=== PATIENT | female | born 1945 | race Caucasian/White ===

== ENCOUNTER 2018-11-12 17:17 | Inpatient (IN) ==
[2018-11-12] MEDS ORDERED: NS 1000 ML 1,000 ML ONE ×3 (17:19→20:09)
--- NOTE | 2018-11-12 17:37 | DR.EXTPAIN ---
HPI Time seen Time Seen by Provider: 11/12/18 17:33 PCP Primary Care Physician: ELOISA HPI Comment HPI Comment: PATIENT IS 73YR OLD FEMALE HERE VIA EMS WITH LOW BLOOD AND INFECTION LEFT LOWER EXTREMITY. PATIENT HAVE GENERALIZE WEAKNESS AND PAIN FOR FEW DAYS. EMS SAID PATIENT WAS HYPOTENSIVE BUT RESPONDED TO NORMAL SALINE GIVEN. IN ED, SHE IS ALERT AND ANSWERING QUESTIONS. BP IS 92/40. PAIN LEVEL IS 4/10 CURRENTLY MAINLY LEFT LOWER EXTREMITY BUT ALSO MYALGIA. NO FEVER BUT HAVE FELT WARM AND HAD CHILLS AT HOME. SORE IN LEFT FOOT IS WORSE WITH SWELLING AND REDNESS GOING INTO LEGS. Complaint/Symptoms Chief Complaint Doctor Comments: LOW LOW BLOOD PRESSURE AND INFECTION LEFT LOWER EXTREMITY. Chief Complaint:: PT C/O LT LOWER EXT WOUND. [facility] STATES THEY WERE CA LLED OUT BY HOME [facility]ALTH [facility] FOR THE INFECTED FOOT. EMS STATES THEY WERE UNABLE TO OBTAIN B/P UNTIL FLUIDS WERE ADMINISTERED. Nurses notes reviewed Nurses Notes Review: Yes Source History Provided: Patient Mode of arrival Mode of Arrival: EMS Timing Onset of Chief Complaint: 11/12/18 Context History of: Arthritis Associated signs and symptoms Associated Signs and Symptoms: Weakness, Pain and Swelling PMH PMH Past Medical History: Yes Past Medical History: Arthritis and Hypertension Past Surgical History: Yes Surgical History: Bowel Resection, Hysterectomy and Ortho Surgery Past Surgical History Comment: RT HAND SURGERY, Family History History of Family Medical Conditions: No Social History Does patient currently use any type of tobacco product: Yes Have you used tobacco products in the last 12 months: Yes Type of Tobacco Use: Cigarettes Does any household member use tobacco: Yes Alcohol Use: None Do you use any recreational Drugs:: No Lives With: Family Lives Where: Home infectious screening In the last 2 months have you had wt loss of >10#?: NO Have you had fever, night sweats or hemotysis?: No Have you traveled outside the country in the last 6 months?: No Isolation: Standard ROS Review of Systems Constitutional: See HPI, Chills, Fever, Weakness and Fatigue; negative Diaphoresis and Loss of Appetite Eyes: See HPI; negative Eye Pain, Blurred Vision, Tearing and Discharge ENTM: No Symptoms Reported and See HPI; negative Ear Pain, Nose Discharge, Nose Congestion and Throat Pain Respiratoy: See HPI and Non-Productive Cough; negative Short of Breath and Wheezing Cardiovascular: See HPI and Edema (LENT LEG.); negative Chest Pain and Palpitations Gastrointestinal/Abdominal: See HPI and Nausea; negative Abdominal Pain, Constipation, Diarrhea and Vomiting Genitourinary: No Symptoms Reported and See HPI; negative Dysuria, Frequency and Hematuria Neurological: See HPI, Headache, Weakness and Dizziness Musculoskeletal: See HPI, Back Pain and Muscle Pain Integumentary: See HPI, Change in Color and Wound (LEFT FOOT DRAINING WOUND TOES.) Hematologic/Lymphatic: See HPI, Easy Bruising, Swollen Glands and Lymphadenopathy Endocrine: See HPI and Increased Thirst; negative Increased Urine and Decreased Appetite Psychiatric: No Symptoms Reported and See HPI All Other Systems: Reviewed and Negative PE Vital Signs Vitals: Temperature 99.5 F Pulse Rate [Left Brachial] 126 Pulse Rate 89 Respiratory Rate 20 Blood Pressure [Right Arm] 150/85 Blood Pressure [Left Arm] 111/54 Blood Pressure 82/52 O2 Sat by Pulse Oximetry 100 General Limitations: No Limitations General Appearance: Alert and In No Apparent Distress Head Head Exam: Normal Inspection and Atraumatic Eyes Eye exam: Normal Appearance and PERRL; negative Scleral Icterus and Conjunctival Injection ENT ENT Exam: Normal Exam, Normal Oropharynx, Normal External Ear Exam and TM's Normal Bilaterally Neck Neck Exam: Normal Inspection and Trachea Midline; negative Tenderness and Lymphadenopathy Chest Chest Inspection: Normal Inspection and Symmetric Chest Wall Rise; negative Tenderness Respiratory Respiratory Exam: negative Accessory Muscle Use, Chest Wall Tenderness and Respiratory Distress Respiratory Exam: Bilateral: Rhonchi and Lower: Rhonchi Cardiovascular Cardiovascular Exam: Regular Rate, Normal Rhythm and Normal Heart Sounds; negative Systolic Murmur and Diastolic Murmur Abdominal Exam Abdominal Exam: Normal Inspection, Normal Bowel Sounds and Soft; negative Tenderness Abdominal Tenderness: RUQ Extremities Extremities Exam: Full ROM and Tenderness (TENDERNESS LEFT FOOT AND LEG WITH DRAINAGE FROM ) Neurological Neurological Exam: Alert, Oriented X3 and CN II-XII Intact; negative Motor Sensory Deficit Psychiatric Psychiatric Exam: Normal Affect and Anxious Skin Skin Exam: Erythema Type of Lesion: Rash (INFECTION.) Distribution: RLE Description: Tenderness, Erythematous, Swelling and Discharge (DRAINAGE.) MDM Differential Diagnosis Differential Diagnosis: Other (CELLULITIS LLE, HYPOTENSION) COURSE Treatment Treatment: SEE ORDERS. NS 1L BOLUS X 2 AND VANCOMYCIN, 500MG IVPB IN ED. Reevaluation 1st: Improved (BLOOD PRESSURE IMPROVING.) 2nd: Improved (BLOOD PRESSURE CONTINUE TO IMPROVE. SEE NURSING NOTE.) Consultation Consultation Comments: DISCUSS PATIENT WITH DR. AMIN. HE WILL ADMIT PATIENT. ADMIT ORDERS DONE. Education/Counseling Education/Counseling: Patient Educated On: Diagnosis and Needs for Follow Up ROR Labs Reviewed Laboratory Results Reviewed?: Yes Result Diagrams: 11/20/18 04:28 11/20/18 04:28 Laboratory: 11/12/18 18:20 Blood Blood Culture - Final 11/12/18 17:48 Blood Blood Culture - Final 11/12/18 17:30 Foot - Left Gram Stain - Final 11/12/18 17:30 Foot - Left Wound Culture - Final Staphylococcus Aureus WBC 14.3 X10^3/uL (3.6-10.0) H 11/20/18 04:28 RBC 3.67 X10^6/uL (3.5-5.4) 11/20/18 04:28 Hgb 10.8 g/dL (12.0-16.0) L 11/20/18 04:28 Hct 31.5 % (36.0-47.0) L 11/20/18 04:28 MCV 85.8 fL (80.0-100.0) 11/20/18 04:28 MCH 29.6 pg (27.0-34.0) 11/20/18 04:28 MCHC 34.5 g/dL (33.0-35.0) 11/20/18 04:28 RDW 15.5 % (11.6-16.5) 11/20/18 04:28 Plt Count 89 X10^3/uL (150.0-450.0) L 11/20/18 04:28 Plt Count Comment Decreased (ADEQUATE) A 11/20/18 04:28 MPV 9.0 fL (7.4-11.0) 11/20/18 04:28 Neut % (Auto) 81.2 % (42.0-75.0) H 11/20/18 04:28 Lymph % (Auto) 11.0 % (21.0-51.0) L 11/20/18 04:28 Rowan % (Auto) 6.6 % (0.0-13.0) 11/20/18 04:28 Eos % (Auto) 1.1 % (0.9-2.9) 11/20/18 04:28 Baso % (Auto) 0.1 % (0.2-1.0) L 11/20/18 04:28 Neut # (Auto) 11.6 x10^3/uL (2.2-4.8) H 11/20/18 04:28 Lymph # (Auto) 1.6 X10^3/uL (1.3-2.9) 11/20/18 04:28 Rowan # (Auto) 0.9 x10^3/uL (0.3-0.8) H 11/20/18 04:28 Eos # (Auto) 0.2 x10^3/uL (0.0-0.2) 11/20/18 04:28 Baso # (Auto) 0.0 X10^3/uL (0.0-0.1) 11/20/18 04:28 Absolute Nucleated RBC 0.1 /100WBC 11/20/18 04:28 Total Counted 100 11/20/18 04:28 Neutrophils % (Manual) 74 % (39-76) 11/20/18 04:28 Band Neutrophils % 4 % (0-10) 11/20/18 04:28 Lymphocytes % (Manual) 15 % (13-43) 11/20/18 04:28 Monocytes % (Manual) 5 % (4-9) 11/20/18 04:28 Eosinophils % (Manual) 2 % (0-6) 11/20/18 04:28 Plt Morphology Comment Normal (NORMAL) 11/20/18 04:28 RBC Morphology Normal (NORMAL) 11/20/18 04:28 ESR 48 MM/HOUR (0-20) H 11/18/18 04:27 INR Target Range - 11/14/18 05:24 INR 1.08 (0.8-1.3) 11/14/18 05:24 Sample Site Rbra 11/18/18 22:15 ABG pH 7.550 (7.35-7.45) H 11/18/18 22:15 ABG pCO2 47.0 mmHg (35.0-45.0) H 11/18/18 22:15 ABG pO2 144.0 mmHg (80.0-100.0) H 11/18/18 22:15 ABG HCO3 41.1 mmol/L (22-26) H* 11/18/18 22:15 ABG O2 Saturation 99.0 % (90-100) 11/18/18 22:15 ABG Base Excess 16.6 mmol/L (-2.0-2.0) H 11/18/18 22:15 Lan Test N/a 11/18/18 22:15 A-a Gradient 82.0 mmHg 11/18/18 22:15 FiO2 40.0 11/18/18 22:15 Blood Gas Comments Pt toll well eb 11/18/18 22:15 Sodium 142 mmol/L (136-145) 11/20/18 04:28 Corrected Sodium TNP 11/20/18 04:28 Potassium 2.8 mmol/L (3.5-5.1) L* 11/20/18 04:28 Chloride 98 mmol/L (98-107) 11/20/18 04:28 Carbon Dioxide 35.3 mmol/L (21-32) H 11/20/18 04:28 BUN 46 mg/dL (7-18) H 11/20/18 04:28 Creatinine 3.06 mg/dL (0.55-1.02) H 11/20/18 04:28 Est GFR (MDRD) Af Amer 19 (>60) L 11/20/18 04:28 Est GFR (MDRD) Non-Af 16 (>60) L 11/20/18 04:28 Glucose 97 mg/dL (65-99) 11/20/18 04:28 POC Glucose (mg/dL) 56 mg/dL (65-99) L 11/17/18 21:19 Lactic Acid 1.0 mmol/L (0.4-2.0) 11/12/18 17:48 Calcium 9.1 mg/dL (8.5-10.1) 11/20/18 04:28 Corrected Calcium TNP 11/20/18 04:28 Magnesium 3.0 mg/dL (1.7-2.9) H 11/20/18 04:28 Total Bilirubin 1.10 mg/dL (0.2-1.0) H 11/20/18 04:28 AST 36 Units/L (15-37) 11/20/18 04:28 ALT 29 Units/L (12-78) 11/20/18 04:28 Alkaline Phosphatase 40 Units/L (46-116) L 11/20/18 04:28 Creatine Kinase 602 Units/L (26-192) H 11/17/18 10:22 CK-MB (CK-2) 3.4 ng/mL (0-4.0) 11/17/18 10:22 CK/CKMB % Calc 0.6 % (<4) 11/17/18 10:22 Troponin I 0.49 ng/mL (0-1.5) 11/17/18 10:22 C-Reactive Protein 196.30 mg/L (0-3.0) H 11/18/18 04:27 B-Natriuretic Peptide 1050 pg/mL (0-79) H* 11/20/18 04:28 Total Protein 7.0 g/dL (6.4-8.2) 11/20/18 04:28 Albumin 3.8 g/dL (3.4-5.0) 11/20/18 04:28 Globulin 3.2 g/dL (2.5-4.5) 11/20/18 04:28 Albumin/Globulin Ratio 1.2 Ratio (1.1-2.1) 11/20/18 04:28 Specimen Type Catherized urine 11/12/18 20:45 Urine Color Yellow (YELLOW) 11/12/18 20:45 Urine Appearance Hazy (CLEAR) 11/12/18 20:45 Urine pH 5.0 (5.0 - 8.0) 11/12/18 20:45 Ur Specific Margie 1.020 (1.000-1.030) 11/12/18 20:45 Urine Protein 2+ (NEGATIVE) 11/12/18 20:45 Urine Glucose (UA) Negative (NEGATIVE) 11/12/18 20:45 Urine Ketones Negative (NEGATIVE) 11/12/18 20:45 Urine Occult Blood 4+ (NEGATIVE) 11/12/18 20:45 Urine Nitrite Negative (NEGATIVE) 11/12/18 20:45 Urine Bilirubin 2+ (NEGATIVE) 11/12/18 20:45 Urine Urobilinogen Normal (NORMAL) 11/12/18 20:45 Ur Leukocyte Esterase 1+ (NEGATIVE) 11/12/18 20:45 Urine RBC 0-2 /HPF (NONE SEEN) 11/12/18 20:45 Urine WBC 0-2 /HPF (NONE SEEN) 11/12/18 20:45 Ur Squamous Epith Cells Rare /HPF (NEGATIVE) 11/12/18 20:45 Amorphous Sediment 3+ /HPF (NEGATIVE) 11/12/18 20:45 Urine Bacteria Negative /HPF (NEGATIVE) 11/12/18 20:45 Hyaline Casts Rare /LPF (NEGATIVE) 11/12/18 20:45 Fine Granular Casts Rare /LPF (NEGATIVE) 11/12/18 20:45 Ur Culture Indicated? No/not indicated 11/12/18 20:45 Vancomycin Trough 26.8 ug/mL (15-20) H* 11/19/18 20:56 Random Vancomycin 25.7 ug/mL 11/20/18 04:28 Tissue Pathology To follow 11/14/18 10:36 XRAY XRAY Interpreted by: Radiologist XRAY Findings: REPORT NOTED AND DISCUSS WITH PATIENT. Opioid Opioid Risk Tool Age (Jeff box if 16-45): No Total: 0 Total Score Risk Category: Low Risk Copyright: [facility] predicting aberrant behaviors Diagnosis Discharge Problem: Acute hypotension, Cellulitis of foot, left Acute renal failure Qualifiers: Acute renal failure type: with acute renal cortical necrosis Qualified Code(s): N17.1 - Acute kidney failure with acute cortical necrosis Noninfected skin tear of right leg Qualifiers: Encounter type: initial encounter Qualified Code(s): S81.811A - Laceration without foreign body, right lower leg, initial encounter Noninfected skin tear of left leg Qualifiers: Encounter type: initial encounter Qualified Code(s): S81.812A - Laceration without foreign body, left lower leg, initial encounter Instructions Forms: Excuse From Work
[2018-11-12] MEDS ORDERED: NS 1000 ML 1,000 ML IV ONE ×2 (17:45→18:33)
--- NOTE | 2018-11-12 18:07 | RAD ---
Examination: Left foot, three views History: Infection Findings: There is soft tissue swelling and marked osteopenia. There is lateral subluxation of the toe phalanges at the MTP joints. There is no evidence for definite fracture or osteomyelitis. Marked hallux valgus deformity. Impression: Soft tissue swelling, osteopenia. Marked hallux valgus. Lateral subluxation of MTP joints 2, 3 and 4. No evidence for bone infection. Follow-up suggested if developing osteomyelitis is a clinical concern. Reported By:
[2018-11-12 18:11] LABS: BASOPHILS % (AUTO) 0.2 % (0.2-1.0); EOSINOPHILS # (AUTO) 0.1 x10^3/uL (0.0-0.2); EOSINOPHILS % (AUTO) 0.5 % (0.9-2.9); HEMATOCRIT 35.8 % (36.0-47.0); HEMOGLOBIN 12.1 g/dL (12.0-16.0); LYMPHOCYTES # (AUTO) 0.7 X10^3/uL (1.3-2.9); LYMPHOCYTES % (AUTO) 6.8 % (21.0-51.0); MEAN CORPUSCULAR HEMOGLOBIN 29.8 pg (27.0-34.0); MEAN CORPUSCULAR HGB CONC 33.8 g/dL (33.0-35.0); MEAN PLATELET VOLUME 8.3 fL (7.4-11.0); MONOCYTES # (AUTO) 0.8 x10^3/uL (0.3-0.8); MONOCYTES % (AUTO) 7.9 % (0.0-13.0); NEUTROPHILS # (AUTO) 8.7 x10^3/uL (2.2-4.8); NEUTROPHILS % (AUTO) 84.6 % (42.0-75.0); PLATELET COUNT 255 X10^3/uL (150.0-450.0); RED BLOOD COUNT 4.07 X10^6/uL (3.5-5.4); WHITE BLOOD COUNT 10.3 X10^3/uL (3.6-10.0)
[2018-11-12 18:22] LABS: ALANINE AMINOTRANSFERASE 48 Units/L (12-78); ALBUMIN 2.6 g/dL (3.4-5.0); ALKALINE PHOSPHATASE 65 Units/L (46-116); ASPARTATE AMINO TRANSFERASE 103 Units/L (15-37); BLOOD UREA NITROGEN 84 mg/dL (7-18); CALCIUM 7.5 mg/dL (8.5-10.1); CARBON DIOXIDE 24.1 mmol/L (21-32); CHLORIDE 103 mmol/L (98-107); COR CA(FOR HYPOALB) 8.6 mg/dL (8.5-10.1); CREATININE 5.66 mg/dL (0.55-1.02); SODIUM 140 mmol/L (136-145); TOTAL PROTEIN 6.7 g/dL (6.4-8.2); eGFR NON BLACK RACES 8 (>60)
--- NOTE | 2018-11-12 19:58 | RAD ---
History: Shortness of breath. Examination: Chest, one view. Comparison: None. Findings: There is cardiomegaly with increased pulmonary vasculature congestion and mild scattered interstitial thickening, suggesting pulmonary edema. There is no focal alveolar consolidation. No pleural effusion or pneumothorax. Conclusion: CHF with pulmonary edema. Reported By:
[2018-11-12] MEDS ORDERED: ZOFRAN TAB 4 MG PO PRN (19:59)
[2018-11-12] MEDS ORDERED: VANCOMYCIN HCL 500 MG VIAL 500 MG in D5W 100 ML IV 100 ML IV ONE (20:12)
[2018-11-12] MEDS ORDERED: VANCOMYCIN HCL 500 MG VIAL ONE (20:51)
[2018-11-12 20:57] LABS: BILIRUBIN,URINE 2+ (NEGATIVE); BLOOD/HEMOGLOBIN,URINE 4+ (NEGATIVE); GLUCOSE, URINE NEGATIVE (NEGATIVE); KETONES,URINE NEGATIVE (NEGATIVE); LEUKOCYTE ESTERASE ,URINE 1+ (NEGATIVE); NITRITES,URINE NEGATIVE (NEGATIVE); PROTEIN,URINE 2+ (NEGATIVE); UROBILINOGEN,URINE NORMAL (NORMAL)
[2018-11-12 20:59] LABS: APPEARANCE,URINE HAZY (CLEAR); COLOR,URINE YELLOW (YELLOW)
[2018-11-12] MEDS ORDERED: PHARMACY CONSULT - VANCOMYCIN XX SCH (21:00)
[2018-11-12] MEDS: NS 1000 ML 1,000 ML IV SCH (21:00)
[2018-11-12] MEDS ORDERED: VANCOMYCIN HCL 1 GM VIAL 1 G in D5W 250 ML IV 250 ML IV ONE (21:00)
[2018-11-12 21:17] LABS: AMORPHOUS SEDIMENT,UR 3+ /HPF (NEGATIVE); BACTERIA,URINE NEGATIVE /HPF (NEGATIVE); HYALINE CASTS, URINE RARE /LPF (NEGATIVE); RBC,URINE 0-2 /HPF (NONE SEEN); SQUAMOUS EPITHELIAL CELL,UR RARE /HPF (NEGATIVE)
[2018-11-12 21:18] LABS: FINE GRANULAR CASTS,URINE RARE /LPF (NEGATIVE)
[2018-11-13 05:51] LABS: BASOPHILS % (AUTO) 0.2 % (0.2-1.0); EOSINOPHILS # (AUTO) 0.1 x10^3/uL (0.0-0.2); EOSINOPHILS % (AUTO) 0.7 % (0.9-2.9); HEMATOCRIT 32.2 % (36.0-47.0); LYMPHOCYTES # (AUTO) 0.7 X10^3/uL (1.3-2.9); LYMPHOCYTES % (AUTO) 7.8 % (21.0-51.0); MEAN CORPUSCULAR HGB CONC 34.1 g/dL (33.0-35.0); MEAN CORPUSCULAR VOLUME 88.1 fL (80.0-100.0); MEAN PLATELET VOLUME 8.6 fL (7.4-11.0); MONOCYTES # (AUTO) 0.8 x10^3/uL (0.3-0.8); MONOCYTES % (AUTO) 8.4 % (0.0-13.0); NEUTROPHILS # (AUTO) 7.4 x10^3/uL (2.2-4.8); NEUTROPHILS % (AUTO) 82.9 % (42.0-75.0); PLATELET COUNT 242 X10^3/uL (150.0-450.0); RED BLOOD COUNT 3.66 X10^6/uL (3.5-5.4); RED CELL DISTRIBUTION WIDTH 15.6 % (11.6-16.5)
[2018-11-13 06:01] LABS: ALANINE AMINOTRANSFERASE 41 Units/L (12-78); ALKALINE PHOSPHATASE 53 Units/L (46-116); ASPARTATE AMINO TRANSFERASE 91 Units/L (15-37); BLOOD UREA NITROGEN 71 mg/dL (7-18); CALCIUM 6.9 mg/dL (8.5-10.1); CARBON DIOXIDE 20.8 mmol/L (21-32); CHLORIDE 109 mmol/L (98-107); COR CA(FOR HYPOALB) 8.5 mg/dL (8.5-10.1); CREATININE 4.14 mg/dL (0.55-1.02); SODIUM 141 mmol/L (136-145); TOTAL PROTEIN 5.6 g/dL (6.4-8.2); eGFR NON BLACK RACES 11 (>60)
[2018-11-13 06:09] VITALS: BMI 20.8
[2018-11-13] MEDS: NS 1000 ML 1,000 ML IV SCH ×2 (09:19→20:07)
[2018-11-13] MEDS ORDERED: HYDROGEN PEROXIDE 3% EXT ONE (11:57)
[2018-11-13] MEDS ORDERED: HYDROGEN PEROXIDE 3% ONE (12:00)
[2018-11-13] MEDS ORDERED: NS 250 ML IV 250 ML ONE (13:23)
[2018-11-13] MEDS ORDERED: VANCOMYCIN HCL 1 GM VIAL ONE (13:23)
[2018-11-13] MEDS ORDERED: NS 1/2 1000 ML IV 1,000 ML ONE ×2 (13:26→23:38)
[2018-11-13] MEDS ORDERED: SODIUM BICARBONATE 8.4% INJ ADULT ONE ×2 (13:26→23:38)
[2018-11-13] MEDS: SODIUM BICARBONATE 8.4% INJ ADULT 100 ML in NS 1/2 1000 ML IV 1,000 ML IV PRN ×2 (13:41→23:54)
[2018-11-13] MEDS: PEPCID 20 MG IV PREMIX* 20 MG/50 ML BAG IV SCH ×2 (13:42→20:41)
[2018-11-13] MEDS: PROTONIX TAB 40 MG PO SCH (13:42)
[2018-11-13] MEDS: SOLU-Medrol 40 MG VIAL IVP SCH ×2 (13:42→21:41)
[2018-11-13] MEDS: ALBUMIN HUMAN 25%- 100 ML 100 ML IV SCH (13:43)
--- NOTE | 2018-11-13 20:26 | DR.H&P ---
H&P - History & Physical for Day of: H&P Date: 11/12/18 - Chief Complaint Chief Complaint: LEFT LOWER EXTREMITY WOUND - History of Present Illness History of Present Illness: IS A 73 YEAR OLD PATIENT OF OURS. SHE PRESENTED TO THE ER WITH COMPLAINTS OF A LEFT LOWER EXTREMITY WOUND. EMS REPORTS THAT THEY WERE CALLED TO PATIENTS RESIDENCE FOR AN INFECTED FOOT. EMS REPORTS THAT PATIENTS BLOOD PRESSURE WAS UNOBTAINABLE UNTIL SHE RECEIVED IV FLUIDS. ON ARRIVAL TO THE ER, PATIENT NOTED WITH MULTIPLE SKIN TEARS TO LEFT AND RIGHT FOOT. THERE IS A NECROTIC WOUND NOTED TO THE SECOND DIGIT OF LEFT FOOT WITH YELLOW SLOUGH AND FOULD ODOR. LEFT LOWER EXTREMITY NOTED WITH ERYTHEM AND EDEMA. PATIENT REPORTS RECEIVING FOUR ROUNDS OF ORAL ANTIBIOTICS. SHE IS CURRENTLY ON BACTRIM DS 1 TABLET BID. ON ARRIVAL, VITALS WERE 97.6-79-20-99%-92/40. LABS WERE OBTAINED. ABNORMAL LAB VALUES INCLUDE THE FOLLOWING: WBC C10.3, HCT 35.8, BUN 84, CREATININE 5.66, CALCIUM 7.5, AST 103, CRP 249.70, ALBUMIN 2.6. BLOOD AND WOUND CULTURE OBTAINED. LEFT FOOT XRAY OBTAINED AND REVEALED: Soft tissue swelling, osteopenia. Marked hallux valgus. Lateral subluxation of MTP joints 2, 3 and 4. No evidence for bone infection. A CHEST XRAY WAS OBTAINED AND REVEALED: CHF with pulmonary edema. EKG REVEALED: SINUS RHYTHM WITH HR 81. SHE WAS GIVEN A NORMAL SALINE BOLUS X 2 AND VANCOMYCIN 1G IV X 1 DOSE. SHE WAS ADMITTED TO THE HOSPITAL FOR FURTHER EVALUATION AND TREATMENT OF ACUTE HYPOTENSION, ACUTE RENAL FAILURE, AND CELLULITIS. WE STARTED NORMAL SALINE AT 100ML/HR AND SHE WILL RECEIVE VANCOMYCIN 1G IV DAILY. OTHERWISE, WE PLAN TO FOLLOW UP WITH AM LABS AND CONTINUE TO MONITOR. - Past Medical History Past Medical History: Hypertension, Arthritis - Past Surgical History Surgical History: Bowel Resection, Hysterectomy, Ortho Surgery - Family History Family Medical History: Diabetes Mellitus, [place], Coronary Artery Disease, Hypertension - Social History Does patient currently use any type of tobacco product: Yes Have you used tobacco products in the last 12 months: Yes Type of Tobacco Use: Cigarettes Does any household member use tobacco: Yes Alcohol Use: None Drug Use: None Prescription drug monitoring program results: PDMP reviewed and no concerns identified - Medications Home Medications: Penicillins Adverse Reaction (Verified 11/12/18 17:29) CONTINUE taking the following medications aspirin 81 mg PO DAILY 11/13/18 [History] biotin 10,000 mcg PO DAILY 11/13/18 [History] calcium carbonate-vitamin D3 [Calcium 600 + D(3)] 1 tab PO DAILY 11/13/18 [History] cholecalciferol (vitamin D3) [Vitamin D3] 1 cap PO DAILY 11/13/18 [History] docusate sodium 100 mg PO DAILY 11/13/18 [History] famotidine 40 mg PO BID 11/13/18 [History] gentamicin 1 applic TOPICAL BID 11/13/18 [History] hydrochlorothiazide 12.5 mg PO DAILY 11/13/18 [History] levocetirizine 5 mg PO DAILY 11/13/18 [History] levothyroxine 88 mcg PO DAILY 11/13/18 [History] metoprolol tartrate 50 mg PO BID 11/13/18 [History] montelukast 10 mg PO DAILY 11/13/18 [History] olmesartan 20 mg PO DAILY 11/13/18 [History] oxycodone-acetaminophen [Percocet] 1 tab PO DAILY 11/13/18 [History] prasterone (dhea) [DHEA] 25 mg PO DAILY 11/13/18 [History] prednisone 7.5 mg PO Q OTHER DAY 11/13/18 [History] prednisone 10 mg PO Q OTHER DAY 11/13/18 [History] simvastatin 20 mg PO HS 11/13/18 [History] sulfamethoxazole-trimethoprim [Bactrim] 1 tab PO BID 11/13/18 [History] tramadol 50 mg PO QID PRN 11/13/18 [History] vitamin B complex [B-Complex] 1 tab PO DAILY 11/13/18 [History] - Review of Systems Constitutional: Weakness Eyes: No Symptoms Reported ENT: No Symptoms Reported Respiratory: No Symptoms Reported Cardiovascular: No Symptoms Reported Gastrointestinal: No Symptoms Reported Genitourinary: No Symptoms Reported Musculoskeletal: See HPI, Leg Pain, Foot Pain Skin: See HPI, Wound Neurological: Weakness - Physical Exam Vital Signs: Temperature 98.7 F Pulse Rate [Left Brachial] 84 Pulse Rate 89 Respiratory Rate 20 Blood Pressure [Right Arm] 119/63 Blood Pressure [Left Arm] 111/54 Blood Pressure 129/58 O2 Sat by Pulse Oximetry 100 Oriented: Normal Eyes: Normal Ear: Normal Nose: Normal Throat: Normal Respiratory: Diminished Throughout Cardiovascular: Normal : Normal Auscultation: Bowel Sounds: Normal Palpation: Normal Tenderness: Normal Skin: Red, Tender, Hot, Wound (LEFT FOOT, 2ND DIGIT) Musculoskeletal: Left, Foot, Tender Psychiatric: Normal Mood Description: Calm Affect: Normal Speech Pattern: Clear - Assessment/Plan (1) Cellulitis of foot, left Status: Acute Plan: ADMIT, IV FLUIDS, WOUND CULTURES, IV ANTIBIOTICS, CONTINUE TO MONITOR (2) Acute hypotension Status: Acute (3) Acute renal failure Qualifiers: Acute renal failure type: unspecified Qualified Code(s): N17.9 - Acute kidney failure, unspecified Status: Acute - Allergies Allergies/Adverse Reactions: Allergies Allergy/AdvReac Type Severity Reaction Status Date / Time Penicillins AdvReac Verified 11/12/18 17:29
[2018-11-13] MEDS ORDERED: VANCOMYCIN HCL 1 GM VIAL 1 G in D5W 250 ML IV 250 ML IV NR (21:00)
[2018-11-14] MEDS: NS 1000 ML 1,000 ML IV SCH (03:36)
[2018-11-14 05:43] LABS: BASOPHILS % (AUTO) 0.1 % (0.2-1.0); HEMATOCRIT 30.4 % (36.0-47.0); HEMOGLOBIN 10.5 g/dL (12.0-16.0); LYMPHOCYTES # (AUTO) 0.6 X10^3/uL (1.3-2.9); MEAN CORPUSCULAR HEMOGLOBIN 29.7 pg (27.0-34.0); MEAN CORPUSCULAR HGB CONC 34.4 g/dL (33.0-35.0); MEAN CORPUSCULAR VOLUME 86.4 fL (80.0-100.0); MEAN PLATELET VOLUME 8.5 fL (7.4-11.0); MONOCYTES # (AUTO) 0.2 x10^3/uL (0.3-0.8); MONOCYTES % (AUTO) 2.7 % (0.0-13.0); NEUTROPHILS # (AUTO) 7.1 x10^3/uL (2.2-4.8); NEUTROPHILS % (AUTO) 89.2 % (42.0-75.0); PLATELET COUNT 219 X10^3/uL (150.0-450.0); RED BLOOD COUNT 3.52 X10^6/uL (3.5-5.4); RED CELL DISTRIBUTION WIDTH 15.5 % (11.6-16.5)
[2018-11-14] MEDS: SOLU-Medrol 40 MG VIAL IVP SCH ×3 (05:56→22:02)
[2018-11-14 05:57] LABS: ALBUMIN 2.5 g/dL (3.4-5.0); CALCIUM 7.1 mg/dL (8.5-10.1); CARBON DIOXIDE 24.1 mmol/L (21-32); COR CA(FOR HYPOALB) 8.3 mg/dL (8.5-10.1); CREATININE 2.31 mg/dL (0.55-1.02); TOTAL PROTEIN 6.1 g/dL (6.4-8.2)
[2018-11-14 06:28] LABS: ERYTHROCYTE SEDIMENTATION RATE 93 MM/HOUR (0-20)
[2018-11-14 06:41] LABS: PLATELET MORPHOLOGY COMMENT NORMAL (NORMAL)
[2018-11-14] MEDS ORDERED: SODIUM BICARBONATE 8.4% INJ ADULT ONE ×3 (06:59→20:58)
[2018-11-14] MEDS ORDERED: NS 1/2 1000 ML IV 1,000 ML ONE ×3 (06:59→20:58)
[2018-11-14] MEDS: SODIUM BICARBONATE 8.4% INJ ADULT 100 ML in NS 1/2 1000 ML IV 1,000 ML IV PRN ×3 (07:09→22:05)
[2018-11-14] MEDS: ALBUMIN HUMAN 25%- 100 ML 100 ML IV SCH (08:47)
[2018-11-14] MEDS ORDERED: ANCEF 1 GRAM IV PREMIX* 1 G/50 ML BAG IV ONE (09:57)
[2018-11-14] MEDS ORDERED: NS 1000 ML 1,000 ML ONE (09:59)
[2018-11-14] MEDS ORDERED: FENTANYL INJ 100 mcg ONE (10:11)
[2018-11-14] MEDS ORDERED: XYLOCAINE 1 % (PLAIN) ONE (10:29)
[2018-11-14] MEDS ORDERED: BACITRACIN VIAL ONE (10:32)
[2018-11-14] MEDS: PEPCID 20 MG IV PREMIX* 20 MG/50 ML BAG IV SCH ×2 (11:00→22:02)
[2018-11-14] MEDS ORDERED: PHARMACY CONSULT - VANCOMYCIN XX SCH (12:00)
--- NOTE | 2018-11-14 12:37 | OR.GENERIC ---
Post-Op Note Generic - Post-Op Note Operative Report: amputation Lt 2ed toe . findings : gangrene of the toe with cellulitis extending to the dorsal aspect of the foot .. the wound was kept open and packed with Iodoform . to contiue local care and IV ABT .
[2018-11-14] MEDS: SYNTHROID 88 mcg TAB PO SCH (13:42)
[2018-11-14] MEDS: PROTONIX TAB 40 MG PO SCH (13:43)
[2018-11-14] MEDS ORDERED: VANCOMYCIN HCL 1 GM VIAL 1 G in NS 250 ML IV 250 ML IV NR (20:00)
--- NOTE | 2018-11-14 20:43 | PCM.PROG ---
Progress Note - Progress Note for Day of Date of Exam: 11/13/18 - Subjective Subjective: WAS ADMITTED FOR ACUTE HYPOTENSION, ACUTE RENAL FAILURE, AND CELLULITIS OF THE LEFT FOOT. SECOND DIGIT OF LEFT TOE IS NOTED WITH FOUL SMELLING DRAINAGE AND INFLAMMATION. TOE IS GANGRENOUS AND WITH NECROSIS OF THE SKIN. HAS BEEN CONSULTED AND WILL SEE PATIENT TODAY. HER VITALS THIS MORNING ARE: 98.6-88-18-100%-115/57. LABS WERE OBTAINED. ABNORMAL LAB VALUES INCLUDE THE FOLLOWING: HGB 11.0, HCT 32.2, CHLORIDE 109, CARBON DIOXIDE 20.8, BUN 71, CREATININE 4.14, GLUCOSE 110, CALCIUM 6.9, AST 91, TOTAL PROTEIN 5.6, ALBUMIN 2.0. BLOOD AND WOUND CULTURES ARE PENDING. SHE IS CURRENTLY RECEIVING IV FLUIDS, PEPECID IV, PROTINIX IV, VANCOMYCIN 1G IV DAILY, ALBUMIN 25% IV DAILY, AND HOME MEDICATIONS WERE RESUMED. WE WILL CONTINUE WITH CURRENT PLAN OF CARE AND WOUND CARE TODAY. OTHERWISE, WE WILL FOLLOW UP WITH AM LABS AND CONTINUE TO MONITOR. - Past Medical Family Social History Past Med/Fam/Surg Hx: No changes since H&P Allergies: Allergies Penicillins Adverse Reaction (Verified 11/12/18 17:29) - Review of Systems ROS: No change since H&P - Vital Signs and I&O's Vital Signs: Temperature 98.6 F Pulse Rate [Left Brachial] 84 Pulse Rate 89 Respiratory Rate 20 Blood Pressure [Right Arm] 186/88 Blood Pressure [Left Arm] 111/54 Blood Pressure 129/58 O2 Sat by Pulse Oximetry 96 Intake and Output: Intake & Output 11/12/18 11/13/18 11/14/18 11/15/18 11:59 11:59 11:59 11:59 Intake Total 700 / 700 2810 / 2810 300 / 300 Output Total 950 / 950 2650 / 2650 500 / 500 Balance -250 / -250 160 / 160 -200 / -200 - Physical Exam Oriented: Normal Eyes: Normal Ear: Normal Nose: Normal Throat: Normal Respiratory: Generalized, Diminished Cardiovascular: Normal : Normal Auscultation: Bowel Sounds: Normal Palpation: Normal Tenderness: Normal Skin: Red, Tender, Hot, Wound (LEFT FOOT, 2ND DIGIT GANGRENOUS AND WITH NECROTIC TISSUE ) Musculoskeletal: Left, Foot, Tender Psychiatric: Normal Mood Description: Calm Affect: Normal Speech Pattern: Clear, Appropriate - Laboratory and Diagnostics Result Diagrams: 11/14/18 05:24 11/14/18 05:24 Labs: 11/12/18 18:20 Blood Blood Culture - Preliminary 11/12/18 17:48 Blood Blood Culture - Preliminary 11/12/18 17:30 Foot - Left Gram Stain - Final 11/12/18 17:30 Foot - Left Wound Culture - Preliminary Laboratory WBC 8.0 X10^3/uL (3.6-10.0) 11/14/18 05:24 RBC 3.52 X10^6/uL (3.5-5.4) 11/14/18 05:24 Hgb 10.5 g/dL (12.0-16.0) L 11/14/18 05:24 Hct 30.4 % (36.0-47.0) L 11/14/18 05:24 MCV 86.4 fL (80.0-100.0) 11/14/18 05:24 MCH 29.7 pg (27.0-34.0) 11/14/18 05:24 MCHC 34.4 g/dL (33.0-35.0) 11/14/18 05:24 RDW 15.5 % (11.6-16.5) 11/14/18 05:24 Plt Count 219 X10^3/uL (150.0-450.0) 11/14/18 05:24 Plt Count Comment Adequate (ADEQUATE) 11/14/18 05:24 MPV 8.5 fL (7.4-11.0) 11/14/18 05:24 Neut % (Auto) 89.2 % (42.0-75.0) H 11/14/18 05:24 Lymph % (Auto) 8.0 % (21.0-51.0) L 11/14/18 05:24 Edwards % (Auto) 2.7 % (0.0-13.0) 11/14/18 05:24 Eos % (Auto) 0.0 % (0.9-2.9) L 11/14/18 05:24 Baso % (Auto) 0.1 % (0.2-1.0) L 11/14/18 05:24 Neut # (Auto) 7.1 x10^3/uL (2.2-4.8) H 11/14/18 05:24 Lymph # (Auto) 0.6 X10^3/uL (1.3-2.9) L 11/14/18 05:24 Edwards # (Auto) 0.2 x10^3/uL (0.3-0.8) L 11/14/18 05:24 Eos # (Auto) 0.0 x10^3/uL (0.0-0.2) 11/14/18 05:24 Baso # (Auto) 0.0 X10^3/uL (0.0-0.1) 11/14/18 05:24 Absolute Nucleated RBC 0.0 /100WBC 11/14/18 05:24 Total Counted 100 11/14/18 05:24 Neutrophils % (Manual) 88 % (39-76) H 11/14/18 05:24 Lymphocytes % (Manual) 10 % (13-43) L 11/14/18 05:24 Monocytes % (Manual) 2 % (4-9) L 11/14/18 05:24 Plt Morphology Comment Normal (NORMAL) 11/14/18 05:24 RBC Morphology Normal (NORMAL) 11/14/18 05:24 ESR 93 MM/HOUR (0-20) H 11/14/18 05:24 INR Target Range - 11/14/18 05:24 INR 1.08 (0.8-1.3) 11/14/18 05:24 Sodium 144 mmol/L (136-145) 11/14/18 05:24 Corrected Sodium 145 mmol/L (136-145) 11/14/18 05:24 Potassium 4.6 mmol/L (3.5-5.1) 11/14/18 05:24 Chloride 108 mmol/L (98-107) H 11/14/18 05:24 Carbon Dioxide 24.1 mmol/L (21-32) 11/14/18 05:24 BUN 45 mg/dL (7-18) H 11/14/18 05:24 Creatinine 2.31 mg/dL (0.55-1.02) H 11/14/18 05:24 Est GFR (MDRD) Af Amer 27 (>60) L 11/14/18 05:24 Est GFR (MDRD) Non-Af 22 (>60) L 11/14/18 05:24 Glucose 128 mg/dL (65-99) H 11/14/18 05:24 Lactic Acid 1.0 mmol/L (0.4-2.0) 11/12/18 17:48 Calcium 7.1 mg/dL (8.5-10.1) L 11/14/18 05:24 Corrected Calcium 8.3 mg/dL (8.5-10.1) L 11/14/18 05:24 Total Bilirubin 0.40 mg/dL (0.2-1.0) 11/14/18 05:24 AST 51 Units/L (15-37) H 11/14/18 05:24 ALT 35 Units/L (12-78) 11/14/18 05:24 Alkaline Phosphatase 50 Units/L (46-116) 11/14/18 05:24 C-Reactive Protein 102.80 mg/L (0-3.0) H 11/14/18 05:24 Total Protein 6.1 g/dL (6.4-8.2) L 11/14/18 05:24 Albumin 2.5 g/dL (3.4-5.0) L 11/14/18 05:24 Globulin 3.6 g/dL (2.5-4.5) 11/14/18 05:24 Albumin/Globulin Ratio 0.7 Ratio (1.1-2.1) L 11/14/18 05:24 Specimen Type Catherized urine 11/12/18 20:45 Urine Color Yellow (YELLOW) 11/12/18 20:45 Urine Appearance Hazy (CLEAR) 11/12/18 20:45 Urine pH 5.0 (5.0 - 8.0) 11/12/18 20:45 Ur Specific Elkin 1.020 (1.000-1.030) 11/12/18 20:45 Urine Protein 2+ (NEGATIVE) 11/12/18 20:45 Urine Glucose (UA) Negative (NEGATIVE) 11/12/18 20:45 Urine Ketones Negative (NEGATIVE) 11/12/18 20:45 Urine Occult Blood 4+ (NEGATIVE) 11/12/18 20:45 Urine Nitrite Negative (NEGATIVE) 11/12/18 20:45 Urine Bilirubin 2+ (NEGATIVE) 11/12/18 20:45 Urine Urobilinogen Normal (NORMAL) 11/12/18 20:45 Ur Leukocyte Esterase 1+ (NEGATIVE) 11/12/18 20:45 Urine RBC 0-2 /HPF (NONE SEEN) 11/12/18 20:45 Urine WBC 0-2 /HPF (NONE SEEN) 11/12/18 20:45 Ur Squamous Epith Cells Rare /HPF (NEGATIVE) 11/12/18 20:45 Amorphous Sediment 3+ /HPF (NEGATIVE) 11/12/18 20:45 Urine Bacteria Negative /HPF (NEGATIVE) 11/12/18 20:45 Hyaline Casts Rare /LPF (NEGATIVE) 11/12/18 20:45 Fine Granular Casts Rare /LPF (NEGATIVE) 11/12/18 20:45 Ur Culture Indicated? No/not indicated 11/12/18 20:45 Tissue Pathology To follow 11/14/18 10:36 - Plan (1) Cellulitis of foot, left Status: Acute Plan: IV FLUIDS, WOUND CULTURES, IV ANTIBIOTICS, CONTINUE TO MONITOR (2) Acute hypotension Status: Acute (3) Acute renal failure Status: Acute Qualifiers: Acute renal failure type: with acute renal cortical necrosis Qualified Code(s): N17.1 - Acute kidney failure with acute cortical necrosis
[2018-11-14] MEDS: ZOCOR TAB 20 MG PO SCH (22:00)
[2018-11-14] MEDS: LOPRESSOR TAB 50 MG PO SCH (22:00)
[2018-11-14] MEDS: MORPHINE SULFATE INJ 2 MG INJ IVP PRN (22:20)
[2018-11-15] MEDS: ATIVAN TAB 0.5 MG PO PRN ×2 (02:08→20:40)
[2018-11-15] MEDS: MORPHINE SULFATE INJ 2 MG INJ IVP PRN ×2 (04:31→20:42)
[2018-11-15] MEDS ORDERED: VALIUM INJ IVP PRN (04:32)
[2018-11-15] MEDS ORDERED: HALDOL INJ IM ONE (04:48)
[2018-11-15] MEDS ORDERED: HALDOL INJ ONE (04:49)
[2018-11-15] MEDS: SYNTHROID 88 mcg TAB PO SCH (06:14)
[2018-11-15] MEDS: SOLU-Medrol 40 MG VIAL IVP SCH ×2 (06:15→16:43)
[2018-11-15] MEDS ORDERED: PATIENT'S HOME MEDICATION (Levocetirizine [Levocetirizine] 5 MG) PO SCH (09:00)
[2018-11-15] MEDS ORDERED: PATIENT'S HOME MEDICATION (Biotin [Biotin] 10,000 MCG) PO SCH (09:00)
[2018-11-15] MEDS ORDERED: PATIENT'S HOME MEDICATION (Oxycodone-Acetaminophen [Percocet] 1 TAB) PO SCH (09:00)
[2018-11-15] MEDS ORDERED: VITAMIN B COMPLEX PO SCH (09:00)
[2018-11-15] MEDS ORDERED: PRASTERONE 25 MG PO SCH (09:00)
--- NOTE | 2018-11-15 09:45 | DR.PROGNOT ---
Hospital Progress Notes - Progress Note for Day of: Progress Note Date: 11/15/18 - Chief Complaint Chief Complaint: post op amputation 2ed toe Lt foot . doing well . no bleeding . Lt foot cellulitis is much better with only mild erythema of the foot . renal function is improving . - Past Medical Family Social History Past Med/Fam/Surg Hx: No changes since H&P Allergies: Allergies Penicillins Adverse Reaction (Verified 11/12/18 17:29) - Review Of Systems ROS: No change since H&P - Vital Signs Vital Signs: Temperature 97.8 F Pulse Rate [Left Brachial] 110 Pulse Rate 89 Respiratory Rate 20 Blood Pressure [Right Arm] 168/78 Blood Pressure [Left Arm] 111/54 Blood Pressure 129/58 O2 Sat by Pulse Oximetry 93 - Physical Exam Oriented: Normal Eyes: Normal Ear: Normal Nose: Normal Throat: Normal Respiratory: Generalized, Diminished Cardiovascular: Normal : Normal GI:Auscultation: Normal GI:Palpation: Normal GI: Tenderness: Normal Skin: Red, Tender, Hot, Wound (LEFT FOOT, 2ND DIGIT GANGRENOUS AND WITH NECROTIC TISSUE ) Musculoskeletal: Left, Foot, Tender (open wound ,s/p amputation 2ed toe Lt foot with improving cellulitis .) Psychiatric: Normal Mood Description: Calm Affect: Normal Speech Pattern: Clear, Appropriate - Laboratory and Diagnostics Result Diagrams: 11/14/18 05:24 11/14/18 05:24 Labs: 11/12/18 17:30 Foot - Left Gram Stain - Final 11/12/18 17:30 Foot - Left Wound Culture - Final Staphylococcus Aureus 11/12/18 18:20 Blood Blood Culture - Preliminary 11/12/18 17:48 Blood Blood Culture - Preliminary Laboratory WBC 8.0 X10^3/uL (3.6-10.0) 11/14/18 05:24 RBC 3.52 X10^6/uL (3.5-5.4) 11/14/18 05:24 Hgb 10.5 g/dL (12.0-16.0) L 11/14/18 05:24 Hct 30.4 % (36.0-47.0) L 11/14/18 05:24 MCV 86.4 fL (80.0-100.0) 11/14/18 05:24 MCH 29.7 pg (27.0-34.0) 11/14/18 05:24 MCHC 34.4 g/dL (33.0-35.0) 11/14/18 05:24 RDW 15.5 % (11.6-16.5) 11/14/18 05:24 Plt Count 219 X10^3/uL (150.0-450.0) 11/14/18 05:24 Plt Count Comment Adequate (ADEQUATE) 11/14/18 05:24 MPV 8.5 fL (7.4-11.0) 11/14/18 05:24 Neut % (Auto) 89.2 % (42.0-75.0) H 11/14/18 05:24 Lymph % (Auto) 8.0 % (21.0-51.0) L 11/14/18 05:24 [place] % (Auto) 2.7 % (0.0-13.0) 11/14/18 05:24 Eos % (Auto) 0.0 % (0.9-2.9) L 11/14/18 05:24 Baso % (Auto) 0.1 % (0.2-1.0) L 11/14/18 05:24 Neut # (Auto) 7.1 x10^3/uL (2.2-4.8) H 11/14/18 05:24 Lymph # (Auto) 0.6 X10^3/uL (1.3-2.9) L 11/14/18 05:24 [place] # (Auto) 0.2 x10^3/uL (0.3-0.8) L 11/14/18 05:24 Eos # (Auto) 0.0 x10^3/uL (0.0-0.2) 11/14/18 05:24 Baso # (Auto) 0.0 X10^3/uL (0.0-0.1) 11/14/18 05:24 Absolute Nucleated RBC 0.0 /100WBC 11/14/18 05:24 Total Counted 100 11/14/18 05:24 Neutrophils % (Manual) 88 % (39-76) H 11/14/18 05:24 Lymphocytes % (Manual) 10 % (13-43) L 11/14/18 05:24 Monocytes % (Manual) 2 % (4-9) L 11/14/18 05:24 Plt Morphology Comment Normal (NORMAL) 11/14/18 05:24 RBC Morphology Normal (NORMAL) 11/14/18 05:24 ESR 93 MM/HOUR (0-20) H 11/14/18 05:24 INR Target Range - 11/14/18 05:24 INR 1.08 (0.8-1.3) 11/14/18 05:24 Sodium 144 mmol/L (136-145) 11/14/18 05:24 Corrected Sodium 145 mmol/L (136-145) 11/14/18 05:24 Potassium 4.6 mmol/L (3.5-5.1) 11/14/18 05:24 Chloride 108 mmol/L (98-107) H 11/14/18 05:24 Carbon Dioxide 24.1 mmol/L (21-32) 11/14/18 05:24 BUN 45 mg/dL (7-18) H 11/14/18 05:24 Creatinine 2.31 mg/dL (0.55-1.02) H 11/14/18 05:24 Est GFR (MDRD) Af Amer 27 (>60) L 11/14/18 05:24 Est GFR (MDRD) Non-Af 22 (>60) L 11/14/18 05:24 Glucose 128 mg/dL (65-99) H 11/14/18 05:24 Lactic Acid 1.0 mmol/L (0.4-2.0) 11/12/18 17:48 Calcium 7.1 mg/dL (8.5-10.1) L 11/14/18 05:24 Corrected Calcium 8.3 mg/dL (8.5-10.1) L 11/14/18 05:24 Total Bilirubin 0.40 mg/dL (0.2-1.0) 11/14/18 05:24 AST 51 Units/L (15-37) H 11/14/18 05:24 ALT 35 Units/L (12-78) 11/14/18 05:24 Alkaline Phosphatase 50 Units/L (46-116) 11/14/18 05:24 C-Reactive Protein 102.80 mg/L (0-3.0) H 11/14/18 05:24 Total Protein 6.1 g/dL (6.4-8.2) L 11/14/18 05:24 Albumin 2.5 g/dL (3.4-5.0) L 11/14/18 05:24 Globulin 3.6 g/dL (2.5-4.5) 11/14/18 05:24 Albumin/Globulin Ratio 0.7 Ratio (1.1-2.1) L 11/14/18 05:24 Specimen Type Catherized urine 11/12/18 20:45 Urine Color Yellow (YELLOW) 11/12/18 20:45 Urine Appearance Hazy (CLEAR) 11/12/18 20:45 Urine pH 5.0 (5.0 - 8.0) 11/12/18 20:45 Ur Specific [place] 1.020 (1.000-1.030) 11/12/18 20:45 Urine Protein 2+ (NEGATIVE) 11/12/18 20:45 Urine Glucose (UA) Negative (NEGATIVE) 11/12/18 20:45 Urine Ketones Negative (NEGATIVE) 11/12/18 20:45 Urine Occult Blood 4+ (NEGATIVE) 11/12/18 20:45 Urine Nitrite Negative (NEGATIVE) 11/12/18 20:45 Urine Bilirubin 2+ (NEGATIVE) 11/12/18 20:45 Urine Urobilinogen Normal (NORMAL) 11/12/18 20:45 Ur Leukocyte Esterase 1+ (NEGATIVE) 11/12/18 20:45 Urine RBC 0-2 /HPF (NONE SEEN) 11/12/18 20:45 Urine WBC 0-2 /HPF (NONE SEEN) 11/12/18 20:45 Ur Squamous Epith Cells Rare /HPF (NEGATIVE) 11/12/18 20:45 Amorphous Sediment 3+ /HPF (NEGATIVE) 11/12/18 20:45 Urine Bacteria Negative /HPF (NEGATIVE) 11/12/18 20:45 Hyaline Casts Rare /LPF (NEGATIVE) 11/12/18 20:45 Fine Granular Casts Rare /LPF (NEGATIVE) 11/12/18 20:45 Ur Culture Indicated? No/not indicated 11/12/18 20:45 Tissue Pathology To follow 11/14/18 10:36 - Assessment and Plan 1: post op amputation 2ed toe Lt foot.( staph aureus infection ). cellulitis Lt foot. severe Rheumatoid arthritis . CKD . same PO care - Problem Patient Problems: Patient Problems Acute hypotension (Acute) I95.9 Acute renal failure (Acute) N17.9 Cellulitis of foot, left (Acute) L03.116 Noninfected skin tear of right leg (Acute) S81.811A Noninfected skin tear of left leg (Acute) S81.812A
[2018-11-15] MEDS: ALBUMIN HUMAN 25%- 100 ML 100 ML IV SCH (11:37)
[2018-11-15] MEDS: VITAMIN D3 PO SCH (11:38)
[2018-11-15] MEDS: SINGULAIR TAB 10 MG PO SCH (11:38)
[2018-11-15] MEDS: PROTONIX TAB 40 MG PO SCH (11:38)
[2018-11-15] MEDS: LOPRESSOR TAB 50 MG PO SCH ×2 (11:39→20:40)
[2018-11-15] MEDS: COLACE CAP 100 MG PO SCH (11:39)
[2018-11-15] MEDS: PEPCID 20 MG IV PREMIX* 20 MG/50 ML BAG IV SCH (11:39)
[2018-11-15] MEDS: BENICAR TAB 40 MG PO SCH (11:39)
[2018-11-15] MEDS: OSCAL+D or CALTRATE+D PO SCH (11:39)
[2018-11-15] MEDS ORDERED: MORPHINE SULFATE INJ 2 MG INJ IM ONE (13:00)
[2018-11-15] MEDS: NICOTINE PATCH TD SCH (13:15)
[2018-11-15] MEDS ORDERED: FENTANYL INJ 100 mcg ONE (13:31)
[2018-11-15] MEDS ORDERED: VERSED ONE (13:31)
[2018-11-15] MEDS ORDERED: DIPRIVAN VIAL ONE (13:31)
[2018-11-15] MEDS ORDERED: XYLOCAINE 1 % (PLAIN) ONE (13:31)
[2018-11-15] MEDS: ULTRAM PO PRN ×2 (15:53→23:53)
[2018-11-15] MEDS ORDERED: VISTARIL PO PRN (20:06)
[2018-11-15] MEDS: ZOCOR TAB 20 MG PO SCH (20:40)
--- NOTE | 2018-11-15 22:21 | PCM.PROG ---
Progress Note - Progress Note for Day of Date of Exam: 11/14/18 - Subjective Subjective: WAS ADMITTED FOR ACUTE HYPOTENSION, ACUTE RENAL FAILURE, AND CELLULITIS OF THE LEFT FOOT. SECOND DIGIT OF LEFT TOE IS NOTED WITH FOUL SMELLING DRAINAGE AND INFLAMMATION. TOE IS GANGRENOUS AND WITH NECROSIS OF THE SKIN. PLANS FOR AMPUTATION OF THE TOE TODAY. HER VITALS THIS MORNING ARE: 99.1-82-20-98%-175/68. LABS WERE OBTAINED. ABNORMAL LAB VALUES INCLUDE THE FOLLOWING: HGB 10.5, HCT 30.4, CHLORIDE 108, BUN 45, CREATININE 2.31, GLUCOSE 128, CALCIUM 7.1, AST 51, CRP 102.80, TOTAL PROTEIN 6.1, ALBUMIN 2.5. BLOOD AND WOUND CULTURES ARE PENDING. SHE IS CURRENTLY RECEIVING IV FLUIDS, PEPECID IV, PROTINIX IV, VANCOMYCIN 1G IV DAILY, ALBUMIN 25% IV DAILY, AND HOME MEDICATIONS WERE RESUMED. WE WILL CONTINUE WITH CURRENT PLAN OF CARE AND WOUND CARE TODAY. OTHERWISE, WE WILL FOLLOW UP WITH AM LABS AND CONTINUE TO MONITOR. - Past Medical Family Social History Past Med/Fam/Surg Hx: No changes since H&P Allergies: Allergies Penicillins Adverse Reaction (Verified 11/12/18 17:29) - Review of Systems ROS: No change since H&P - Vital Signs and I&O's Vital Signs: Temperature 98.2 F Pulse Rate [Left Brachial] 111 Pulse Rate 89 Respiratory Rate 18 Blood Pressure [Right Arm] 166/77 Blood Pressure [Left Arm] 111/54 Blood Pressure 129/58 O2 Sat by Pulse Oximetry 95 Intake and Output: Intake & Output 11/13/18 11/14/18 11/15/18 11/16/18 11:59 11:59 11:59 11:59 Intake Total 700 / 700 2810 / 2810 540 / 540 120 / 120 Output Total 950 / 950 2650 / 2650 2600 / 2600 400 / 400 Balance -250 / -250 160 / 160 -2060 / -2060 -280 / -280 - Physical Exam Oriented: Normal Eyes: Normal Ear: Normal Nose: Normal Throat: Normal Respiratory: Generalized, Diminished Cardiovascular: Normal : Normal Auscultation: Bowel Sounds: Normal Palpation: Normal Tenderness: Normal Skin: Red, Tender, Hot, Wound (LEFT FOOT, 2ND DIGIT GANGRENOUS AND WITH NECROTIC TISSUE ) Musculoskeletal: Left, Foot, Tender (open wound ,s/p amputation 2ed toe Lt foot with improving cellulitis .) Psychiatric: Normal Mood Description: Calm Affect: Normal Speech Pattern: Clear, Appropriate - Laboratory and Diagnostics Result Diagrams: 11/14/18 05:24 11/14/18 05:24 Labs: 11/12/18 17:30 Foot - Left Gram Stain - Final 11/12/18 17:30 Foot - Left Wound Culture - Final Staphylococcus Aureus 11/12/18 18:20 Blood Blood Culture - Preliminary 11/12/18 17:48 Blood Blood Culture - Preliminary Laboratory WBC 8.0 X10^3/uL (3.6-10.0) 11/14/18 05:24 RBC 3.52 X10^6/uL (3.5-5.4) 11/14/18 05:24 Hgb 10.5 g/dL (12.0-16.0) L 11/14/18 05:24 Hct 30.4 % (36.0-47.0) L 11/14/18 05:24 MCV 86.4 fL (80.0-100.0) 11/14/18 05:24 MCH 29.7 pg (27.0-34.0) 11/14/18 05:24 MCHC 34.4 g/dL (33.0-35.0) 11/14/18 05:24 RDW 15.5 % (11.6-16.5) 11/14/18 05:24 Plt Count 219 X10^3/uL (150.0-450.0) 11/14/18 05:24 Plt Count Comment Adequate (ADEQUATE) 11/14/18 05:24 MPV 8.5 fL (7.4-11.0) 11/14/18 05:24 Neut % (Auto) 89.2 % (42.0-75.0) H 11/14/18 05:24 Lymph % (Auto) 8.0 % (21.0-51.0) L 11/14/18 05:24 [place] % (Auto) 2.7 % (0.0-13.0) 11/14/18 05:24 Eos % (Auto) 0.0 % (0.9-2.9) L 11/14/18 05:24 Baso % (Auto) 0.1 % (0.2-1.0) L 11/14/18 05:24 Neut # (Auto) 7.1 x10^3/uL (2.2-4.8) H 11/14/18 05:24 Lymph # (Auto) 0.6 X10^3/uL (1.3-2.9) L 11/14/18 05:24 [place] # (Auto) 0.2 x10^3/uL (0.3-0.8) L 11/14/18 05:24 Eos # (Auto) 0.0 x10^3/uL (0.0-0.2) 11/14/18 05:24 Baso # (Auto) 0.0 X10^3/uL (0.0-0.1) 11/14/18 05:24 Absolute Nucleated RBC 0.0 /100WBC 11/14/18 05:24 Total Counted 100 11/14/18 05:24 Neutrophils % (Manual) 88 % (39-76) H 11/14/18 05:24 Lymphocytes % (Manual) 10 % (13-43) L 11/14/18 05:24 Monocytes % (Manual) 2 % (4-9) L 11/14/18 05:24 Plt Morphology Comment Normal (NORMAL) 11/14/18 05:24 RBC Morphology Normal (NORMAL) 11/14/18 05:24 ESR 93 MM/HOUR (0-20) H 11/14/18 05:24 INR Target Range - 11/14/18 05:24 INR 1.08 (0.8-1.3) 11/14/18 05:24 Sodium 144 mmol/L (136-145) 11/14/18 05:24 Corrected Sodium 145 mmol/L (136-145) 11/14/18 05:24 Potassium 4.6 mmol/L (3.5-5.1) 11/14/18 05:24 Chloride 108 mmol/L (98-107) H 11/14/18 05:24 Carbon Dioxide 24.1 mmol/L (21-32) 11/14/18 05:24 BUN 45 mg/dL (7-18) H 11/14/18 05:24 Creatinine 2.31 mg/dL (0.55-1.02) H 11/14/18 05:24 Est GFR (MDRD) Af Amer 27 (>60) L 11/14/18 05:24 Est GFR (MDRD) Non-Af 22 (>60) L 11/14/18 05:24 Glucose 128 mg/dL (65-99) H 11/14/18 05:24 Lactic Acid 1.0 mmol/L (0.4-2.0) 11/12/18 17:48 Calcium 7.1 mg/dL (8.5-10.1) L 11/14/18 05:24 Corrected Calcium 8.3 mg/dL (8.5-10.1) L 11/14/18 05:24 Total Bilirubin 0.40 mg/dL (0.2-1.0) 11/14/18 05:24 AST 51 Units/L (15-37) H 11/14/18 05:24 ALT 35 Units/L (12-78) 11/14/18 05:24 Alkaline Phosphatase 50 Units/L (46-116) 11/14/18 05:24 C-Reactive Protein 102.80 mg/L (0-3.0) H 11/14/18 05:24 Total Protein 6.1 g/dL (6.4-8.2) L 11/14/18 05:24 Albumin 2.5 g/dL (3.4-5.0) L 11/14/18 05:24 Globulin 3.6 g/dL (2.5-4.5) 11/14/18 05:24 Albumin/Globulin Ratio 0.7 Ratio (1.1-2.1) L 11/14/18 05:24 Specimen Type Catherized urine 11/12/18 20:45 Urine Color Yellow (YELLOW) 11/12/18 20:45 Urine Appearance Hazy (CLEAR) 11/12/18 20:45 Urine pH 5.0 (5.0 - 8.0) 11/12/18 20:45 Ur Specific [place] 1.020 (1.000-1.030) 11/12/18 20:45 Urine Protein 2+ (NEGATIVE) 11/12/18 20:45 Urine Glucose (UA) Negative (NEGATIVE) 11/12/18 20:45 Urine Ketones Negative (NEGATIVE) 11/12/18 20:45 Urine Occult Blood 4+ (NEGATIVE) 11/12/18 20:45 Urine Nitrite Negative (NEGATIVE) 11/12/18 20:45 Urine Bilirubin 2+ (NEGATIVE) 11/12/18 20:45 Urine Urobilinogen Normal (NORMAL) 11/12/18 20:45 Ur Leukocyte Esterase 1+ (NEGATIVE) 11/12/18 20:45 Urine RBC 0-2 /HPF (NONE SEEN) 11/12/18 20:45 Urine WBC 0-2 /HPF (NONE SEEN) 11/12/18 20:45 Ur Squamous Epith Cells Rare /HPF (NEGATIVE) 11/12/18 20:45 Amorphous Sediment 3+ /HPF (NEGATIVE) 11/12/18 20:45 Urine Bacteria Negative /HPF (NEGATIVE) 11/12/18 20:45 Hyaline Casts Rare /LPF (NEGATIVE) 11/12/18 20:45 Fine Granular Casts Rare /LPF (NEGATIVE) 11/12/18 20:45 Ur Culture Indicated? No/not indicated 11/12/18 20:45 Tissue Pathology To follow 11/14/18 10:36 - Plan (1) Cellulitis of foot, left Status: Acute Plan: IV FLUIDS, WOUND CULTURES, IV ANTIBIOTICS, CONTINUE TO MONITOR (2) Acute hypotension Status: Acute (3) Acute renal failure Status: Acute Qualifiers: Acute renal failure type: with acute renal cortical necrosis Qualified Code(s): N17.1 - Acute kidney failure with acute cortical necrosis
[2018-11-16] MEDS ORDERED: SODIUM BICARBONATE 8.4% INJ ADULT ONE ×2 (00:02→09:38)
[2018-11-16] MEDS ORDERED: NS 1/2 1000 ML IV 1,000 ML ONE ×3 (00:02→11:22)
[2018-11-16] MEDS: PEPCID 20 MG IV PREMIX* 20 MG/50 ML BAG IV SCH ×3 (00:30→21:55)
[2018-11-16] MEDS: SODIUM BICARBONATE 8.4% INJ ADULT 100 ML in NS 1/2 1000 ML IV 1,000 ML IV PRN ×2 (00:30→09:51)
[2018-11-16] MEDS: SOLU-Medrol 40 MG VIAL IVP SCH ×2 (00:32→05:45)
[2018-11-16] MEDS: SYNTHROID 88 mcg TAB PO SCH (05:55)
[2018-11-16 06:19] LABS: BASOPHILS % (AUTO) 0.2 % (0.2-1.0); HEMATOCRIT 35.4 % (36.0-47.0); HEMOGLOBIN 12.1 g/dL (12.0-16.0); LYMPHOCYTES # (AUTO) 0.4 X10^3/uL (1.3-2.9); LYMPHOCYTES % (AUTO) 2.3 % (21.0-51.0); MEAN CORPUSCULAR HEMOGLOBIN 29.4 pg (27.0-34.0); MEAN CORPUSCULAR HGB CONC 34.3 g/dL (33.0-35.0); MEAN CORPUSCULAR VOLUME 85.7 fL (80.0-100.0); MEAN PLATELET VOLUME 7.7 fL (7.4-11.0); MONOCYTES # (AUTO) 0.6 x10^3/uL (0.3-0.8); MONOCYTES % (AUTO) 3.2 % (0.0-13.0); NEUTROPHILS # (AUTO) 16.7 x10^3/uL (2.2-4.8); NEUTROPHILS % (AUTO) 94.3 % (42.0-75.0); PLATELET COUNT 224 X10^3/uL (150.0-450.0); RED BLOOD COUNT 4.13 X10^6/uL (3.5-5.4); RED CELL DISTRIBUTION WIDTH 15.4 % (11.6-16.5)
[2018-11-16 06:36] LABS: WHITE BLOOD COUNT 17.7 X10^3/uL (3.6-10.0)
[2018-11-16 06:54] LABS: ALANINE AMINOTRANSFERASE 36 Units/L (12-78); ALBUMIN 2.8 g/dL (3.4-5.0); ALKALINE PHOSPHATASE 52 Units/L (46-116); ASPARTATE AMINO TRANSFERASE 61 Units/L (15-37); BLOOD UREA NITROGEN 40 mg/dL (7-18); CALCIUM 8.6 mg/dL (8.5-10.1); CARBON DIOXIDE 25.9 mmol/L (21-32); CHLORIDE 105 mmol/L (98-107); COR CA(FOR HYPOALB) 9.6 mg/dL (8.5-10.1); CREATININE 2.19 mg/dL (0.55-1.02); SODIUM 146 mmol/L (136-145); TOTAL PROTEIN 6.3 g/dL (6.4-8.2); eGFR NON BLACK RACES 23 (>60)
[2018-11-16 07:04] LABS: BAND NEUTROPHILS % 3 % (0-10); PLATELET MORPHOLOGY COMMENT NORMAL (NORMAL)
[2018-11-16 07:12] LABS: ERYTHROCYTE SEDIMENTATION RATE 47 MM/HOUR (0-20)
[2018-11-16] MEDS: MORPHINE SULFATE INJ 2 MG INJ IVP PRN (09:51)
[2018-11-16] MEDS: NICOTINE PATCH TD SCH (09:53)
[2018-11-16] MEDS ORDERED: NS 1/2 1000 ML IV 1,000 ML IV PRN (11:00)
[2018-11-16] MEDS ORDERED: PHARMACY COMMENT IV NR (11:00)
[2018-11-16] MEDS: ALBUMIN HUMAN 25%- 100 ML 100 ML IV SCH (11:00)
[2018-11-16] MEDS ORDERED: PERCOCET TAB 5/325 MG ONE (11:16)
[2018-11-16] MEDS: PERCOCET TAB 5/325 MG PO SCH ×2 (11:16→21:58)
[2018-11-16] MEDS: BENICAR TAB 40 MG PO SCH (11:19)
[2018-11-16] MEDS: SINGULAIR TAB 10 MG PO SCH (11:19)
[2018-11-16] MEDS: OSCAL+D or CALTRATE+D PO SCH (11:19)
[2018-11-16] MEDS: LOPRESSOR TAB 50 MG PO SCH ×2 (11:20→21:55)
[2018-11-16] MEDS: VITAMIN D3 PO SCH (11:20)
[2018-11-16] MEDS: COLACE CAP 100 MG PO SCH (11:20)
[2018-11-16] MEDS: PROTONIX TAB 40 MG PO SCH (11:21)
[2018-11-16] MEDS: ATIVAN TAB 0.5 MG PO PRN (11:24)
--- NOTE | 2018-11-16 11:49 | DR.PROGNOT ---
Hospital Progress Notes - Progress Note for Day of: Progress Note Date: 11/16/18 - Chief Complaint Chief Complaint: post op amputation 2ed toe Lt foot day 2. no bleeding . Pt is confused and agitated . Lt foot cellulitis is much better with only mild erythema of the foot . renal function is improving . - Past Medical Family Social History Past Med/Fam/Surg Hx: No changes since H&P Allergies: Allergies Penicillins Adverse Reaction (Verified 11/12/18 17:29) - Review Of Systems ROS: No change since H&P - Vital Signs Vital Signs: Temperature 97.8 F Pulse Rate [Left Brachial] 117 Pulse Rate 89 Respiratory Rate 28 Blood Pressure [Right Arm] 165/80 Blood Pressure [Left Arm] 111/54 Blood Pressure 129/58 O2 Sat by Pulse Oximetry 92 - Physical Exam Oriented: Other (confused and agitated but alert and answer questions .) Eyes: Normal Ear: Normal Nose: Normal Throat: Normal Respiratory: Generalized, Diminished Cardiovascular: Normal : Normal GI:Auscultation: Normal GI:Palpation: Normal GI: Tenderness: Normal Skin: Wound (open wound Lt 2ed toe amputation site . no necrosis or active infecion .) Musculoskeletal: Left, Foot, Tender (open wound ,s/p amputation 2ed toe Lt foot with improving cellulitis .) Psychiatric: Normal Mood Description: Calm Affect: Normal Speech Pattern: Clear, Inappropriate - Laboratory and Diagnostics Result Diagrams: 11/16/18 05:50 11/16/18 05:50 Labs: 11/12/18 17:30 Foot - Left Gram Stain - Final 11/12/18 17:30 Foot - Left Wound Culture - Final Staphylococcus Aureus 11/12/18 18:20 Blood Blood Culture - Preliminary 11/12/18 17:48 Blood Blood Culture - Preliminary Laboratory WBC 17.7 X10^3/uL (3.6-10.0) H D 11/16/18 05:50 RBC 4.13 X10^6/uL (3.5-5.4) 11/16/18 05:50 Hgb 12.1 g/dL (12.0-16.0) 11/16/18 05:50 Hct 35.4 % (36.0-47.0) L 11/16/18 05:50 MCV 85.7 fL (80.0-100.0) 11/16/18 05:50 MCH 29.4 pg (27.0-34.0) 11/16/18 05:50 MCHC 34.3 g/dL (33.0-35.0) 11/16/18 05:50 RDW 15.4 % (11.6-16.5) 11/16/18 05:50 Plt Count 224 X10^3/uL (150.0-450.0) 11/16/18 05:50 Plt Count Comment Adequate (ADEQUATE) 11/16/18 05:50 MPV 7.7 fL (7.4-11.0) 11/16/18 05:50 Neut % (Auto) 94.3 % (42.0-75.0) H 11/16/18 05:50 Lymph % (Auto) 2.3 % (21.0-51.0) L 11/16/18 05:50 [place] % (Auto) 3.2 % (0.0-13.0) 11/16/18 05:50 Eos % (Auto) 0.0 % (0.9-2.9) L 11/16/18 05:50 Baso % (Auto) 0.2 % (0.2-1.0) 11/16/18 05:50 Neut # (Auto) 16.7 x10^3/uL (2.2-4.8) H 11/16/18 05:50 Lymph # (Auto) 0.4 X10^3/uL (1.3-2.9) L 11/16/18 05:50 [place] # (Auto) 0.6 x10^3/uL (0.3-0.8) 11/16/18 05:50 Eos # (Auto) 0.0 x10^3/uL (0.0-0.2) 11/16/18 05:50 Baso # (Auto) 0.0 X10^3/uL (0.0-0.1) 11/16/18 05:50 Absolute Nucleated RBC 0.2 /100WBC 11/16/18 05:50 Total Counted 100 11/16/18 05:50 Neutrophils % (Manual) 93 % (39-76) H 11/16/18 05:50 Band Neutrophils % 3 % (0-10) 11/16/18 05:50 Lymphocytes % (Manual) 3 % (13-43) L 11/16/18 05:50 Monocytes % (Manual) 1 % (4-9) L 11/16/18 05:50 Plt Morphology Comment Normal (NORMAL) 11/16/18 05:50 RBC Morphology Normal (NORMAL) 11/16/18 05:50 ESR 47 MM/HOUR (0-20) H 11/16/18 05:50 INR Target Range - 11/14/18 05:24 INR 1.08 (0.8-1.3) 11/14/18 05:24 Sodium 146 mmol/L (136-145) H 11/16/18 05:50 Corrected Sodium TNP 11/16/18 05:50 Potassium 4.2 mmol/L (3.5-5.1) 11/16/18 05:50 Chloride 105 mmol/L (98-107) 11/16/18 05:50 Carbon Dioxide 25.9 mmol/L (21-32) 11/16/18 05:50 BUN 40 mg/dL (7-18) H 11/16/18 05:50 Creatinine 2.19 mg/dL (0.55-1.02) H 11/16/18 05:50 Est GFR (MDRD) Af Amer 28 (>60) L 11/16/18 05:50 Est GFR (MDRD) Non-Af 23 (>60) L 11/16/18 05:50 Glucose 69 mg/dL (65-99) 11/16/18 05:50 Lactic Acid 1.0 mmol/L (0.4-2.0) 11/12/18 17:48 Calcium 8.6 mg/dL (8.5-10.1) 11/16/18 05:50 Corrected Calcium 9.6 mg/dL (8.5-10.1) 11/16/18 05:50 Total Bilirubin 0.80 mg/dL (0.2-1.0) 11/16/18 05:50 AST 61 Units/L (15-37) H 11/16/18 05:50 ALT 36 Units/L (12-78) 11/16/18 05:50 Alkaline Phosphatase 52 Units/L (46-116) 11/16/18 05:50 C-Reactive Protein 124.90 mg/L (0-3.0) H 11/16/18 05:50 Total Protein 6.3 g/dL (6.4-8.2) L 11/16/18 05:50 Albumin 2.8 g/dL (3.4-5.0) L 11/16/18 05:50 Globulin 3.5 g/dL (2.5-4.5) 11/16/18 05:50 Albumin/Globulin Ratio 0.8 Ratio (1.1-2.1) L 11/16/18 05:50 Specimen Type Catherized urine 11/12/18 20:45 Urine Color Yellow (YELLOW) 11/12/18 20:45 Urine Appearance Hazy (CLEAR) 11/12/18 20:45 Urine pH 5.0 (5.0 - 8.0) 11/12/18 20:45 Ur Specific [place] 1.020 (1.000-1.030) 11/12/18 20:45 Urine Protein 2+ (NEGATIVE) 11/12/18 20:45 Urine Glucose (UA) Negative (NEGATIVE) 11/12/18 20:45 Urine Ketones Negative (NEGATIVE) 11/12/18 20:45 Urine Occult Blood 4+ (NEGATIVE) 11/12/18 20:45 Urine Nitrite Negative (NEGATIVE) 11/12/18 20:45 Urine Bilirubin 2+ (NEGATIVE) 11/12/18 20:45 Urine Urobilinogen Normal (NORMAL) 11/12/18 20:45 Ur Leukocyte Esterase 1+ (NEGATIVE) 11/12/18 20:45 Urine RBC 0-2 /HPF (NONE SEEN) 11/12/18 20:45 Urine WBC 0-2 /HPF (NONE SEEN) 11/12/18 20:45 Ur Squamous Epith Cells Rare /HPF (NEGATIVE) 11/12/18 20:45 Amorphous Sediment 3+ /HPF (NEGATIVE) 11/12/18 20:45 Urine Bacteria Negative /HPF (NEGATIVE) 11/12/18 20:45 Hyaline Casts Rare /LPF (NEGATIVE) 11/12/18 20:45 Fine Granular Casts Rare /LPF (NEGATIVE) 11/12/18 20:45 Ur Culture Indicated? No/not indicated 11/12/18 20:45 Tissue Pathology To follow 11/14/18 10:36 - Assessment and Plan 1: post op amputation 2ed toe Lt foot.( staph aureus infection ). cellulitis Lt foot.( improving ). severe Rheumatoid arthritis . CKD . same PO care with IV ATB and local care .. - Problem Patient Problems: Patient Problems Acute hypotension (Acute) I95.9 Acute renal failure (Acute) N17.9 Cellulitis of foot, left (Acute) L03.116 Noninfected skin tear of right leg (Acute) S81.811A Noninfected skin tear of left leg (Acute) S81.812A
[2018-11-16] MEDS ORDERED: PHARMACY CONSULT - DOSE _____ XX SCH (12:00)
[2018-11-16] MEDS: LEVAQUIN PREMIX IV 750 MG 750 MG/150 ML BAG IV SCH (14:30)
[2018-11-16] MEDS ORDERED: LASIX IVP ONE (17:03)
[2018-11-16 17:04] LABS: ABG BASE EXCESS 5.1 mmol/L (-2.0-2.0); ABG HCO3 26.6 mmol/L (22-26)
[2018-11-16] MEDS ORDERED: LASIX ONE (17:22)
--- NOTE | 2018-11-16 21:04 | PCM.PROG ---
Progress Note - Progress Note for Day of Date of Exam: 11/15/18 - Subjective Subjective: WAS ADMITTED FOR ACUTE HYPOTENSION, ACUTE RENAL FAILURE, AND CELLULITIS OF THE LEFT FOOT. SHE IS DAY ONE STATUS POST AMPUTATION OF THE SECOND DIGIT OF LEFT FOOT. FAMILY REPORTS THAT SHE HAS BEEN DISORIENTED AND AGITATED THROUGHOUT THE NIGHT. CELLULITIS TO FOOT IS IMPROVING AND IS ONLY NOTED WITH MILD ERYTHEM TODAY. HER VITALS THIS MORNING ARE: 97.8-110-20-93%-168/78. LABS WERE OBTAINED. ABNORMAL LAB VALUES INCLUDE THE FOLLOWING: HGB 10.5, HCT 30.4, CHLORIDE 108, UBN 45, CREATININE 2.31, GLUCOSE 108, CALCIUM 7.1, AST 51, CRP 102.80, TOTAL PROTEIN 6.1, ALBUMIN 2.5. BLOOD AND WOUND CULTURES ARE PENDING. SHE IS CURRENTLY RECEIVING IV FLUIDS, PEPECID IV, PROTINIX IV, VANCOMYCIN 1G IV DAILY, ALBUMIN 25% IV DAILY, AND HOME MEDICATIONS WERE RESUMED. WE WILL CONTINUE WITH CURRENT PLAN OF CARE AND WOUND CARE TODAY. OTHERWISE, WE WILL FOLLOW UP WITH AM LABS AND CONTINUE TO MONITOR. - Past Medical Family Social History Past Med/Fam/Surg Hx: No changes since H&P Allergies: Allergies Penicillins Adverse Reaction (Verified 11/12/18 17:29) - Review of Systems ROS: No change since H&P - Vital Signs and I&O's Vital Signs: Temperature 98.4 F Pulse Rate [Left Brachial] 94 Pulse Rate 89 Respiratory Rate 20 Blood Pressure [Right Arm] 182/96 Blood Pressure [Left Arm] 111/54 Blood Pressure 129/58 O2 Sat by Pulse Oximetry 90 Intake and Output: Intake & Output 11/14/18 11/15/18 11/16/18 11/17/18 11:59 11:59 11:59 11:59 Intake Total 2810 / 2810 540 / 540 260 / 260 120 / 120 Output Total 2650 / 2650 2600 / 2600 1200 / 1200 450 / 450 Balance 160 / 160 -2060 / -2060 -940 / -940 -330 / -330 - Physical Exam Oriented: Other (confused and agitated but alert and answer questions .) Eyes: Normal Ear: Normal Nose: Normal Throat: Normal Respiratory: Generalized, Diminished Cardiovascular: Normal : Normal Auscultation: Bowel Sounds: Normal Tenderness: Normal Skin: Wound (open wound Lt 2ed toe amputation site . no necrosis or active infecion .) Musculoskeletal: Left, Foot, Tender (open wound ,s/p amputation 2ed toe Lt foot with improving cellulitis .) Psychiatric: Normal Mood Description: Calm Affect: Normal Speech Pattern: Clear, Inappropriate - Laboratory and Diagnostics Result Diagrams: 11/16/18 05:50 11/16/18 05:50 Labs: 11/12/18 17:30 Foot - Left Gram Stain - Final 11/12/18 17:30 Foot - Left Wound Culture - Final Staphylococcus Aureus 11/12/18 18:20 Blood Blood Culture - Preliminary 11/12/18 17:48 Blood Blood Culture - Preliminary Laboratory WBC 17.7 X10^3/uL (3.6-10.0) H D 11/16/18 05:50 RBC 4.13 X10^6/uL (3.5-5.4) 11/16/18 05:50 Hgb 12.1 g/dL (12.0-16.0) 11/16/18 05:50 Hct 35.4 % (36.0-47.0) L 11/16/18 05:50 MCV 85.7 fL (80.0-100.0) 11/16/18 05:50 MCH 29.4 pg (27.0-34.0) 11/16/18 05:50 MCHC 34.3 g/dL (33.0-35.0) 11/16/18 05:50 RDW 15.4 % (11.6-16.5) 11/16/18 05:50 Plt Count 224 X10^3/uL (150.0-450.0) 11/16/18 05:50 Plt Count Comment Adequate (ADEQUATE) 11/16/18 05:50 MPV 7.7 fL (7.4-11.0) 11/16/18 05:50 Neut % (Auto) 94.3 % (42.0-75.0) H 11/16/18 05:50 Lymph % (Auto) 2.3 % (21.0-51.0) L 11/16/18 05:50 [place] % (Auto) 3.2 % (0.0-13.0) 11/16/18 05:50 Eos % (Auto) 0.0 % (0.9-2.9) L 11/16/18 05:50 Baso % (Auto) 0.2 % (0.2-1.0) 11/16/18 05:50 Neut # (Auto) 16.7 x10^3/uL (2.2-4.8) H 11/16/18 05:50 Lymph # (Auto) 0.4 X10^3/uL (1.3-2.9) L 11/16/18 05:50 [place] # (Auto) 0.6 x10^3/uL (0.3-0.8) 11/16/18 05:50 Eos # (Auto) 0.0 x10^3/uL (0.0-0.2) 11/16/18 05:50 Baso # (Auto) 0.0 X10^3/uL (0.0-0.1) 11/16/18 05:50 Absolute Nucleated RBC 0.2 /100WBC 11/16/18 05:50 Total Counted 100 11/16/18 05:50 Neutrophils % (Manual) 93 % (39-76) H 11/16/18 05:50 Band Neutrophils % 3 % (0-10) 11/16/18 05:50 Lymphocytes % (Manual) 3 % (13-43) L 11/16/18 05:50 Monocytes % (Manual) 1 % (4-9) L 11/16/18 05:50 Plt Morphology Comment Normal (NORMAL) 11/16/18 05:50 RBC Morphology Normal (NORMAL) 11/16/18 05:50 ESR 47 MM/HOUR (0-20) H 11/16/18 05:50 INR Target Range - 11/14/18 05:24 INR 1.08 (0.8-1.3) 11/14/18 05:24 Sample Site Rb 11/16/18 16:55 ABG pH 7.570 (7.35-7.45) H* 11/16/18 16:55 ABG pCO2 29.0 mmHg (35.0-45.0) L 11/16/18 16:55 ABG pO2 31.0 mmHg (80.0-100.0) L* 11/16/18 16:55 ABG HCO3 26.6 mmol/L (22-26) H 11/16/18 16:55 ABG O2 Saturation 72.0 % (90-100) L* 11/16/18 16:55 ABG Base Excess 5.1 mmol/L (-2.0-2.0) H 11/16/18 16:55 Lan Test Na 11/16/18 16:55 A-a Gradient 132.0 mmHg 11/16/18 16:55 FiO2 28.0 11/16/18 16:55 Blood Gas Comments Pt mary beth well. cdn 11/16/18 16:55 Sodium 146 mmol/L (136-145) H 11/16/18 05:50 Corrected Sodium TNP 11/16/18 05:50 Potassium 4.2 mmol/L (3.5-5.1) 11/16/18 05:50 Chloride 105 mmol/L (98-107) 11/16/18 05:50 Carbon Dioxide 25.9 mmol/L (21-32) 11/16/18 05:50 BUN 40 mg/dL (7-18) H 11/16/18 05:50 Creatinine 2.19 mg/dL (0.55-1.02) H 11/16/18 05:50 Est GFR (MDRD) Af Amer 28 (>60) L 11/16/18 05:50 Est GFR (MDRD) Non-Af 23 (>60) L 11/16/18 05:50 Glucose 69 mg/dL (65-99) 11/16/18 05:50 Lactic Acid 1.0 mmol/L (0.4-2.0) 11/12/18 17:48 Calcium 8.6 mg/dL (8.5-10.1) 11/16/18 05:50 Corrected Calcium 9.6 mg/dL (8.5-10.1) 11/16/18 05:50 Total Bilirubin 0.80 mg/dL (0.2-1.0) 11/16/18 05:50 AST 61 Units/L (15-37) H 11/16/18 05:50 ALT 36 Units/L (12-78) 11/16/18 05:50 Alkaline Phosphatase 52 Units/L (46-116) 11/16/18 05:50 C-Reactive Protein 124.90 mg/L (0-3.0) H 11/16/18 05:50 Total Protein 6.3 g/dL (6.4-8.2) L 11/16/18 05:50 Albumin 2.8 g/dL (3.4-5.0) L 11/16/18 05:50 Globulin 3.5 g/dL (2.5-4.5) 11/16/18 05:50 Albumin/Globulin Ratio 0.8 Ratio (1.1-2.1) L 11/16/18 05:50 Specimen Type Catherized urine 11/12/18 20:45 Urine Color Yellow (YELLOW) 11/12/18 20:45 Urine Appearance Hazy (CLEAR) 11/12/18 20:45 Urine pH 5.0 (5.0 - 8.0) 11/12/18 20:45 Ur Specific [place] 1.020 (1.000-1.030) 11/12/18 20:45 Urine Protein 2+ (NEGATIVE) 11/12/18 20:45 Urine Glucose (UA) Negative (NEGATIVE) 11/12/18 20:45 Urine Ketones Negative (NEGATIVE) 11/12/18 20:45 Urine Occult Blood 4+ (NEGATIVE) 11/12/18 20:45 Urine Nitrite Negative (NEGATIVE) 11/12/18 20:45 Urine Bilirubin 2+ (NEGATIVE) 11/12/18 20:45 Urine Urobilinogen Normal (NORMAL) 11/12/18 20:45 Ur Leukocyte Esterase 1+ (NEGATIVE) 11/12/18 20:45 Urine RBC 0-2 /HPF (NONE SEEN) 11/12/18 20:45 Urine WBC 0-2 /HPF (NONE SEEN) 11/12/18 20:45 Ur Squamous Epith Cells Rare /HPF (NEGATIVE) 11/12/18 20:45 Amorphous Sediment 3+ /HPF (NEGATIVE) 11/12/18 20:45 Urine Bacteria Negative /HPF (NEGATIVE) 11/12/18 20:45 Hyaline Casts Rare /LPF (NEGATIVE) 11/12/18 20:45 Fine Granular Casts Rare /LPF (NEGATIVE) 11/12/18 20:45 Ur Culture Indicated? No/not indicated 11/12/18 20:45 Random Vancomycin 15.8 ug/mL 11/16/18 14:10 Tissue Pathology To follow 11/14/18 10:36 - Plan (1) Cellulitis of foot, left Status: Acute Plan: IV FLUIDS, WOUND CULTURES, IV ANTIBIOTICS, CONTINUE TO MONITOR (2) Acute hypotension Status: Acute (3) Acute renal failure Status: Acute Qualifiers: Acute renal failure type: with acute renal cortical necrosis Qualified Code(s): N17.1 - Acute kidney failure with acute cortical necrosis (4) Status post amputation of toe of left foot Status: Acute
[2018-11-16] MEDS ORDERED: ATIVAN INJ 2 MG VIAL ONE (21:47)
[2018-11-16] MEDS: ATIVAN INJ 2 MG VIAL IVP PRN (21:51)
[2018-11-16] MEDS: VANCOMYCIN HCL 1 GM VIAL 1 G in D5W 250 ML IV 250 ML IV SCH (21:55)
[2018-11-16] MEDS: ZOCOR TAB 20 MG PO SCH (22:01)
[2018-11-17] MEDS: ATIVAN INJ 2 MG VIAL IVP PRN ×3 (02:40→22:41)
[2018-11-17 05:53] LABS: ABG BASE EXCESS 9.5 mmol/L (-2.0-2.0)
[2018-11-17 05:55] LABS: ABG ALLEN TEST POS; ABG HCO3 32.2 mmol/L (22-26)
[2018-11-17] MEDS: SYNTHROID 88 mcg TAB PO SCH (06:12)
--- NOTE | 2018-11-17 06:17 | RAD ---
HISTORY: Shortness of breath Study: Chest AP portable Comparison: 11/12/2018 Findings: The heart is upper limits normal in size. Perihilar interstitial lung changes are now present possibly with some early alveolar confluence in the upper lobes. Findings are consistent with recurrent pulmonary edema. There is now increased density in the retrocardiac area the left lower lobe obscuring the left hemidiaphragm likely due to some developing atelectasis. No pleural effusions are identified. The bony thorax is unremarkable. IMPRESSION: Interval development of interstitial and early alveolar pulmonary edema when compared with the prior examination Increasing density retrocardiac area of the left lower lobe likely due to some developing volume loss Reported By:
[2018-11-17 06:19] LABS: BASOPHILS % (AUTO) 0.1 % (0.2-1.0); HEMATOCRIT 30.1 % (36.0-47.0); HEMOGLOBIN 10.3 g/dL (12.0-16.0); LYMPHOCYTES # (AUTO) 0.9 X10^3/uL (1.3-2.9); LYMPHOCYTES % (AUTO) 5.7 % (21.0-51.0); MEAN CORPUSCULAR HEMOGLOBIN 29.4 pg (27.0-34.0); MEAN CORPUSCULAR HGB CONC 34.2 g/dL (33.0-35.0); MONOCYTES # (AUTO) 0.7 x10^3/uL (0.3-0.8); MONOCYTES % (AUTO) 4.6 % (0.0-13.0); NEUTROPHILS # (AUTO) 14.5 x10^3/uL (2.2-4.8); NEUTROPHILS % (AUTO) 89.6 % (42.0-75.0); PLATELET COUNT 171 X10^3/uL (150.0-450.0); RED BLOOD COUNT 3.51 X10^6/uL (3.5-5.4); RED CELL DISTRIBUTION WIDTH 15.3 % (11.6-16.5); WHITE BLOOD COUNT 16.2 X10^3/uL (3.6-10.0)
[2018-11-17] MEDS: MORPHINE SULFATE INJ 2 MG INJ IVP PRN ×3 (06:38→21:36)
[2018-11-17 06:45] LABS: ALANINE AMINOTRANSFERASE 31 Units/L (12-78); ALBUMIN 2.8 g/dL (3.4-5.0); ALKALINE PHOSPHATASE 45 Units/L (46-116); ASPARTATE AMINO TRANSFERASE 53 Units/L (15-37); BLOOD UREA NITROGEN 43 mg/dL (7-18); CALCIUM 8.8 mg/dL (8.5-10.1); CARBON DIOXIDE 29.4 mmol/L (21-32); CHLORIDE 104 mmol/L (98-107); COR CA(FOR HYPOALB) 9.8 mg/dL (8.5-10.1); CREATININE 2.29 mg/dL (0.55-1.02); SODIUM 144 mmol/L (136-145); TOTAL PROTEIN 5.9 g/dL (6.4-8.2); eGFR NON BLACK RACES 22 (>60)
[2018-11-17 06:58] LABS: BAND NEUTROPHILS % 1 % (0-10)
[2018-11-17 06:59] LABS: PLATELET MORPHOLOGY COMMENT NORMAL (NORMAL)
[2018-11-17 07:18] LABS: ERYTHROCYTE SEDIMENTATION RATE 40 MM/HOUR (0-20)
[2018-11-17] MEDS: LASIX IVP SCH ×2 (10:43→21:34)
[2018-11-17] MEDS: ALBUMIN HUMAN 25%- 100 ML 100 ML IV SCH (10:44)
[2018-11-17] MEDS: PEPCID 20 MG IV PREMIX* 20 MG/50 ML BAG IV SCH ×2 (10:45→21:35)
[2018-11-17] MEDS: NICOTINE PATCH TD SCH (10:45)
[2018-11-17] MEDS: SINGULAIR TAB 10 MG PO SCH (10:48)
[2018-11-17] MEDS: PERCOCET TAB 5/325 MG PO SCH ×2 (10:48→12:10)
[2018-11-17] MEDS: VITAMIN D3 PO SCH (10:48)
[2018-11-17] MEDS: PROTONIX TAB 40 MG PO SCH (10:48)
[2018-11-17] MEDS: BENICAR TAB 40 MG PO SCH ×2 (10:49→12:11)
[2018-11-17] MEDS: OSCAL+D or CALTRATE+D PO SCH ×2 (10:49→12:12)
[2018-11-17] MEDS: LOPRESSOR TAB 50 MG PO SCH ×2 (10:49→12:11)
[2018-11-17 10:56] LABS: CKMB % 0.6 % (<4); CREATINE KINASE MB 3.4 ng/mL (0-4.0); TROPONIN I 0.49 ng/mL (0-1.5)
[2018-11-17] MEDS: COLACE CAP 100 MG PO SCH (12:09)
[2018-11-17] MEDS ORDERED: ZOFRAN INJ 4 MG VIAL IVP PRN (15:00)
[2018-11-17] MEDS: LOPRESSOR INJ 5 MG AMP IVP SCH ×2 (16:52→21:34)
[2018-11-17] MEDS: VASOTEC INJ 2.5 MG VIAL IVP SCH ×2 (16:53→21:36)
[2018-11-17] MEDS ORDERED: D5W 1000 ML IV 1,000 ML IV SCH (21:23)
[2018-11-17] MEDS: VANCOMYCIN HCL 1 GM VIAL 1 G in D5W 250 ML IV 250 ML IV SCH (21:35)
--- NOTE | 2018-11-17 21:49 | PCM.PROG ---
Progress Note - Progress Note for Day of Date of Exam: 11/16/18 - Subjective Subjective: WAS ADMITTED FOR ACUTE HYPOTENSION, ACUTE RENAL FAILURE, AND CELLULITIS OF THE LEFT FOOT. SHE IS DAY TWO STATUS POST AMPUTATION OF THE SECOND DIGIT OF LEFT FOOT. FAMILY REPORTS THAT SHE HAS BEEN DISORIENTED AND AGITATED THROUGHOUT THE NIGHT. UPON MORNING ROUNDS, SHE IS DISORIENTED AND IS WITHOUT A GOWN OR CLOTHING. CELLULITIS TO FOOT IS IMPROVING AND IS ONLY NOTED WITH MILD ERYTHEMA TODAY. HER VITALS THIS MORNING ARE: 98.8-103-18-92%-184/91. LABS WERE OBTAINED. ABNORMAL LAB VALUES INCLUDE THE FOLLOWING: WBC 17.7, HCT 35.4, SODIUM 146, BUN 40, CREATININE 2.19, AST 61, CRP 124.90, TOTAL PROTEIN 6.3, ALBUMIN 2.8. BLOOD AND WOUND CULTURES ARE PENDING. SHE IS CURRENTLY RECEIVING IV FLUIDS, PEPECID IV, PROTINIX IV, VANCOMYCIN 1G IV DAILY, ALBUMIN 25% IV DAILY, AND HOME MEDICATIONS WERE RESUMED. WE WILL CONTINUE WITH CURRENT PLAN OF CARE AND WOUND CARE TODAY. WE WILL ADD LEVAQUIN 750MG IV Q48H. OTHERWISE, WE WILL FOLLOW UP WITH AM LABS AND CONTINUE TO MONITOR. - Past Medical Family Social History Past Med/Fam/Surg Hx: No changes since H&P Allergies: Allergies Penicillins Adverse Reaction (Verified 11/12/18 17:29) - Review of Systems ROS: No change since H&P - Vital Signs and I&O's Vital Signs: Temperature 98.3 F Pulse Rate [Left Brachial] 101 Pulse Rate 89 Respiratory Rate 18 Blood Pressure [Right Arm] 178/93 Blood Pressure [Left Arm] 111/54 Blood Pressure 176/79 O2 Sat by Pulse Oximetry 100 Intake and Output: Intake & Output 11/15/18 11/16/18 11/17/18 11/18/18 11:59 11:59 11:59 11:59 Intake Total 540 / 540 260 / 260 220 / 220 0 / 0 Output Total 2600 / 2600 1200 / 1200 1650 / 1650 1200 / 1200 Balance -2060 / -2060 -940 / -940 -1430 / -1430 -1200 / -1200 - Physical Exam Oriented: Other (confused and agitated but alert and answer questions .) Eyes: Normal Ear: Normal Nose: Normal Throat: Normal Respiratory: Generalized, Diminished Cardiovascular: Normal : Normal Auscultation: Bowel Sounds: Normal Tenderness: Normal Skin: Wound (open wound Lt 2ed toe amputation site . no necrosis or active infecion .) Musculoskeletal: Left, Foot, Tender (open wound ,s/p amputation 2ed toe Lt foot with improving cellulitis .) Psychiatric: Normal Mood Description: Calm Affect: Normal Speech Pattern: Clear, Inappropriate - Laboratory and Diagnostics Result Diagrams: 11/17/18 05:29 11/17/18 05:29 Labs: 11/12/18 17:30 Foot - Left Gram Stain - Final 11/12/18 17:30 Foot - Left Wound Culture - Final Staphylococcus Aureus 11/12/18 18:20 Blood Blood Culture - Preliminary 11/12/18 17:48 Blood Blood Culture - Preliminary Laboratory WBC 16.2 X10^3/uL (3.6-10.0) H 11/17/18 05:29 RBC 3.51 X10^6/uL (3.5-5.4) 11/17/18 05:29 Hgb 10.3 g/dL (12.0-16.0) L 11/17/18 05:29 Hct 30.1 % (36.0-47.0) L 11/17/18 05:29 MCV 86.0 fL (80.0-100.0) 11/17/18 05:29 MCH 29.4 pg (27.0-34.0) 11/17/18 05:29 MCHC 34.2 g/dL (33.0-35.0) 11/17/18 05:29 RDW 15.3 % (11.6-16.5) 11/17/18 05:29 Plt Count 171 X10^3/uL (150.0-450.0) 11/17/18 05:29 Plt Count Comment Adequate (ADEQUATE) 11/17/18 05:29 MPV 8.0 fL (7.4-11.0) 11/17/18 05:29 Neut % (Auto) 89.6 % (42.0-75.0) H 11/17/18 05:29 Lymph % (Auto) 5.7 % (21.0-51.0) L 11/17/18 05:29 [place] % (Auto) 4.6 % (0.0-13.0) 11/17/18 05:29 Eos % (Auto) 0.0 % (0.9-2.9) L 11/17/18 05:29 Baso % (Auto) 0.1 % (0.2-1.0) L 11/17/18 05:29 Neut # (Auto) 14.5 x10^3/uL (2.2-4.8) H 11/17/18 05:29 Lymph # (Auto) 0.9 X10^3/uL (1.3-2.9) L 11/17/18 05:29 [place] # (Auto) 0.7 x10^3/uL (0.3-0.8) 11/17/18 05:29 Eos # (Auto) 0.0 x10^3/uL (0.0-0.2) 11/17/18 05:29 Baso # (Auto) 0.0 X10^3/uL (0.0-0.1) 11/17/18 05:29 Absolute Nucleated RBC 0.1 /100WBC 11/17/18 05:29 Total Counted 100 11/17/18 05:29 Neutrophils % (Manual) 88 % (39-76) H 11/17/18 05:29 Band Neutrophils % 1 % (0-10) 11/17/18 05:29 Lymphocytes % (Manual) 8 % (13-43) L 11/17/18 05:29 Monocytes % (Manual) 3 % (4-9) L 11/17/18 05:29 Plt Morphology Comment Normal (NORMAL) 11/17/18 05:29 RBC Morphology Normal (NORMAL) 11/17/18 05:29 ESR 40 MM/HOUR (0-20) H 11/17/18 05:29 INR Target Range - 11/14/18 05:24 INR 1.08 (0.8-1.3) 11/14/18 05:24 Sample Site Rrad 11/17/18 05:48 ABG pH 7.560 (7.35-7.45) H* 11/17/18 05:48 ABG pCO2 36.0 mmHg (35.0-45.0) 11/17/18 05:48 ABG pO2 92.0 mmHg (80.0-100.0) 11/17/18 05:48 ABG HCO3 32.2 mmol/L (22-26) H* 11/17/18 05:48 ABG O2 Saturation 98.0 % (90-100) 11/17/18 05:48 ABG Base Excess 9.5 mmol/L (-2.0-2.0) H 11/17/18 05:48 Lan Test Pos 11/17/18 05:48 A-a Gradient 291.0 mmHg 11/17/18 05:48 FiO2 60.0 11/17/18 05:48 Blood Gas Comments Erin abg well-mtf 11/17/18 05:48 Sodium 144 mmol/L (136-145) 11/17/18 05:29 Corrected Sodium TNP 11/17/18 05:29 Potassium 4.1 mmol/L (3.5-5.1) 11/17/18 05:29 Chloride 104 mmol/L (98-107) 11/17/18 05:29 Carbon Dioxide 29.4 mmol/L (21-32) 11/17/18 05:29 BUN 43 mg/dL (7-18) H 11/17/18 05:29 Creatinine 2.29 mg/dL (0.55-1.02) H 11/17/18 05:29 Est GFR (MDRD) Af Amer 27 (>60) L 11/17/18 05:29 Est GFR (MDRD) Non-Af 22 (>60) L 11/17/18 05:29 Glucose 66 mg/dL (65-99) 11/17/18 05:29 POC Glucose (mg/dL) 56 mg/dL (65-99) L 11/17/18 21:19 Lactic Acid 1.0 mmol/L (0.4-2.0) 11/12/18 17:48 Calcium 8.8 mg/dL (8.5-10.1) 11/17/18 05:29 Corrected Calcium 9.8 mg/dL (8.5-10.1) 11/17/18 05:29 Total Bilirubin 0.90 mg/dL (0.2-1.0) 11/17/18 05:29 AST 53 Units/L (15-37) H 11/17/18 05:29 ALT 31 Units/L (12-78) 11/17/18 05:29 Alkaline Phosphatase 45 Units/L (46-116) L 11/17/18 05:29 Creatine Kinase 602 Units/L (26-192) H 11/17/18 10:22 CK-MB (CK-2) 3.4 ng/mL (0-4.0) 11/17/18 10:22 CK/CKMB % Calc 0.6 % (<4) 11/17/18 10:22 Troponin I 0.49 ng/mL (0-1.5) 11/17/18 10:22 C-Reactive Protein 130.80 mg/L (0-3.0) H 11/17/18 05:29 Total Protein 5.9 g/dL (6.4-8.2) L 11/17/18 05:29 Albumin 2.8 g/dL (3.4-5.0) L 11/17/18 05:29 Globulin 3.1 g/dL (2.5-4.5) 11/17/18 05:29 Albumin/Globulin Ratio 0.9 Ratio (1.1-2.1) L 11/17/18 05:29 Specimen Type Catherized urine 11/12/18 20:45 Urine Color Yellow (YELLOW) 11/12/18 20:45 Urine Appearance Hazy (CLEAR) 11/12/18 20:45 Urine pH 5.0 (5.0 - 8.0) 11/12/18 20:45 Ur Specific [place] 1.020 (1.000-1.030) 11/12/18 20:45 Urine Protein 2+ (NEGATIVE) 11/12/18 20:45 Urine Glucose (UA) Negative (NEGATIVE) 11/12/18 20:45 Urine Ketones Negative (NEGATIVE) 11/12/18 20:45 Urine Occult Blood 4+ (NEGATIVE) 11/12/18 20:45 Urine Nitrite Negative (NEGATIVE) 11/12/18 20:45 Urine Bilirubin 2+ (NEGATIVE) 11/12/18 20:45 Urine Urobilinogen Normal (NORMAL) 11/12/18 20:45 Ur Leukocyte Esterase 1+ (NEGATIVE) 11/12/18 20:45 Urine RBC 0-2 /HPF (NONE SEEN) 11/12/18 20:45 Urine WBC 0-2 /HPF (NONE SEEN) 11/12/18 20:45 Ur Squamous Epith Cells Rare /HPF (NEGATIVE) 11/12/18 20:45 Amorphous Sediment 3+ /HPF (NEGATIVE) 11/12/18 20:45 Urine Bacteria Negative /HPF (NEGATIVE) 11/12/18 20:45 Hyaline Casts Rare /LPF (NEGATIVE) 11/12/18 20:45 Fine Granular Casts Rare /LPF (NEGATIVE) 11/12/18 20:45 Ur Culture Indicated? No/not indicated 11/12/18 20:45 Random Vancomycin 15.8 ug/mL 11/16/18 14:10 Tissue Pathology To follow 11/14/18 10:36 - Plan (1) Cellulitis of foot, left Status: Acute Plan: IV FLUIDS, WOUND CULTURES, IV ANTIBIOTICS, CONTINUE TO MONITOR (2) Acute hypotension Status: Acute (3) Acute renal failure Status: Acute Qualifiers: Acute renal failure type: with acute renal cortical necrosis Qualified Co de(s): N17.1 - Acute kidney failure with acute cortical necrosis (4) Status post amputation of toe of left foot Status: Acute
[2018-11-18] MEDS: LOPRESSOR INJ 5 MG AMP IVP SCH ×4 (04:34→20:10)
[2018-11-18] MEDS: VASOTEC INJ 2.5 MG VIAL IVP SCH ×4 (04:35→20:11)
[2018-11-18 05:46] LABS: BASOPHILS % (AUTO) 0.1 % (0.2-1.0); EOSINOPHILS # (AUTO) 0.1 x10^3/uL (0.0-0.2); EOSINOPHILS % (AUTO) 0.5 % (0.9-2.9); HEMATOCRIT 30.6 % (36.0-47.0); HEMOGLOBIN 10.6 g/dL (12.0-16.0); LYMPHOCYTES # (AUTO) 0.7 X10^3/uL (1.3-2.9); LYMPHOCYTES % (AUTO) 5.6 % (21.0-51.0); MEAN CORPUSCULAR HEMOGLOBIN 29.5 pg (27.0-34.0); MEAN CORPUSCULAR HGB CONC 34.5 g/dL (33.0-35.0); MEAN CORPUSCULAR VOLUME 85.6 fL (80.0-100.0); MEAN PLATELET VOLUME 8.4 fL (7.4-11.0); MONOCYTES # (AUTO) 0.5 x10^3/uL (0.3-0.8); MONOCYTES % (AUTO) 4.5 % (0.0-13.0); NEUTROPHILS % (AUTO) 89.3 % (42.0-75.0); PLATELET COUNT 105 X10^3/uL (150.0-450.0); RED BLOOD COUNT 3.58 X10^6/uL (3.5-5.4); RED CELL DISTRIBUTION WIDTH 15.2 % (11.6-16.5); WHITE BLOOD COUNT 12.3 X10^3/uL (3.6-10.0)
[2018-11-18 05:55] LABS: ALANINE AMINOTRANSFERASE 30 Units/L (12-78); ALBUMIN 2.9 g/dL (3.4-5.0); ALKALINE PHOSPHATASE 44 Units/L (46-116); ASPARTATE AMINO TRANSFERASE 44 Units/L (15-37); BLOOD UREA NITROGEN 39 mg/dL (7-18); CALCIUM 8.9 mg/dL (8.5-10.1); CARBON DIOXIDE 33.4 mmol/L (21-32); CHLORIDE 99 mmol/L (98-107); COR CA(FOR HYPOALB) 9.8 mg/dL (8.5-10.1); CREATININE 2.32 mg/dL (0.55-1.02); SODIUM 144 mmol/L (136-145); TOTAL PROTEIN 6.1 g/dL (6.4-8.2); eGFR NON BLACK RACES 22 (>60)
[2018-11-18] MEDS: ATIVAN INJ 2 MG VIAL IVP PRN ×2 (06:00→21:59)
[2018-11-18 06:06] LABS: BAND NEUTROPHILS % 1 % (0-10); PLATELET MORPHOLOGY COMMENT NORMAL (NORMAL)
[2018-11-18 06:45] LABS: ERYTHROCYTE SEDIMENTATION RATE 48 MM/HOUR (0-20)
--- NOTE | 2018-11-18 06:58 | RAD ---
HISTORY: Shortness of breath Study: Chest AP portable Comparison: 11/17/2018 Findings: Patient is rotated to the left. The heart remains upper limits normal in size. The lungs are generally hyperinflated. The left lower lobe is now well aerated. Perihilar interstitial and alveolar changes felt to represent pulmonary edema have improved somewhat since the prior examination. No definite pleural effusions are identified. The bony thorax is unremarkable. IMPRESSION: Improved aeration in the left lower lobe when compared with the prior examination Interstitial and early alveolar pulmonary edema is also slightly improved when compared with the prior examination Reported By:
[2018-11-18] MEDS ORDERED: KLOR-CON PO PRN (07:06)
[2018-11-18] MEDS ORDERED: POTASSIUM CHLORIDE LIQ 20 MEQ UDC PO PRN (07:06)
[2018-11-18] MEDS ORDERED: MICRO K EXTEN CAP 10 MEQ PO PRN (07:06)
[2018-11-18] MEDS ORDERED: K-DUR TAB 20 MEQ PO PRN (07:06)
[2018-11-18] MEDS ORDERED: POTASSIUM CHL 60 MEQ/NS 0.45% 500 ML IV PRN (07:06)
[2018-11-18] MEDS ORDERED: K-RIDER 10 MEQ/NS 100 ML 10 MEQ/100 ML BAG IV PRN (07:06)
[2018-11-18] MEDS ORDERED: POTASSIUM CHL 40 MEQ/NS 0.45% 500 ML IV PRN (07:06)
[2018-11-18] MEDS ORDERED: HALDOL INJ ONE (10:23)
[2018-11-18] MEDS: ALBUMIN HUMAN 25%- 100 ML 100 ML IV SCH (11:10)
[2018-11-18] MEDS: D5W 1000 ML IV 1,000 ML with POTASSIUM CHLORIDE INJ 40 MEQ VIAL 40 MEQ IV SCH ×2 (11:11)
[2018-11-18] MEDS: HALDOL INJ IVP PRN ×2 (11:11→17:41)
[2018-11-18] MEDS: PROTONIX INJ 40 MG VIAL IVP SCH (11:12)
[2018-11-18] MEDS: SYNTHROID INJ 100 mcg VIAL IVP SCH (11:12)
[2018-11-18] MEDS: PEPCID 20 MG IV PREMIX* 20 MG/50 ML BAG IV SCH ×2 (11:13→20:09)
[2018-11-18] MEDS: NICOTINE PATCH TD SCH (11:13)
[2018-11-18] MEDS ORDERED: TYLENOL SUPP 325 MG ONE ×2 (11:29→11:33)
[2018-11-18] MEDS ORDERED: TYLENOL SUPP 650 MG PR PRN (11:31)
[2018-11-18] MEDS: LASIX IVP SCH ×2 (11:43→20:09)
[2018-11-18] MEDS: LEVAQUIN PREMIX IV 750 MG 750 MG/150 ML BAG IV SCH (11:44)
[2018-11-18] MEDS: DILAUDID INJ IVP PRN ×2 (11:46→19:48)
--- NOTE | 2018-11-18 15:18 | DR.PROGNOT ---
Hospital Progress Notes - Progress Note for Day of: Progress Note Date: 11/18/18 - Chief Complaint Chief Complaint: post op amputation 2ed toe Lt foot day 4. no bleeding . Pt is being treated for respiratory distress and agitation . Lt foot cellulitis is much better with only mild erythema of the foot . - Past Medical Family Social History Past Med/Fam/Surg Hx: No changes since H&P Allergies: Allergies Penicillins Adverse Reaction (Verified 11/12/18 17:29) - Review Of Systems ROS: No change since H&P - Vital Signs Vital Signs: Temperature 100.2 F Pulse Rate [Left Brachial] 122 Pulse Rate 89 Respiratory Rate 16 Blood Pressure [Right Arm] 153/76 Blood Pressure [Left Arm] 111/54 Blood Pressure 113/58 O2 Sat by Pulse Oximetry 100 - Physical Exam Oriented: Other (confused and agitated but alert and answer questions .) Eyes: Normal Ear: Normal Nose: Normal Throat: Normal Respiratory: Generalized, Diminished, Rhonchi : Normal GI:Auscultation: Normal GI:Palpation: Normal GI: Tenderness: Normal Skin: Wound (open wound Lt 2ed toe amputation site . no necrosis or active infecion .) Musculoskeletal: Left, Foot, Tender (open wound ,s/p amputation 2ed toe Lt foot with improving cellulitis .) Psychiatric: Normal Mood Description: Calm Affect: Normal Speech Pattern: Clear, Inappropriate - Laboratory and Diagnostics Result Diagrams: 11/18/18 04:27 11/18/18 04:27 Labs: 11/12/18 18:20 Blood Blood Culture - Final 11/12/18 17:48 Blood Blood Culture - Final 11/12/18 17:30 Foot - Left Gram Stain - Final 11/12/18 17:30 Foot - Left Wound Culture - Final Staphylococcus Aureus Laboratory WBC 12.3 X10^3/uL (3.6-10.0) H 11/18/18 04:27 RBC 3.58 X10^6/uL (3.5-5.4) 11/18/18 04:27 Hgb 10.6 g/dL (12.0-16.0) L 11/18/18 04:27 Hct 30.6 % (36.0-47.0) L 11/18/18 04:27 MCV 85.6 fL (80.0-100.0) 11/18/18 04:27 MCH 29.5 pg (27.0-34.0) 11/18/18 04:27 MCHC 34.5 g/dL (33.0-35.0) 11/18/18 04:27 RDW 15.2 % (11.6-16.5) 11/18/18 04:27 Plt Count 105 X10^3/uL (150.0-450.0) L 11/18/18 04:27 Plt Count Comment Decreased (ADEQUATE) A 11/18/18 04:27 MPV 8.4 fL (7.4-11.0) 11/18/18 04:27 Neut % (Auto) 89.3 % (42.0-75.0) H 11/18/18 04:27 Lymph % (Auto) 5.6 % (21.0-51.0) L 11/18/18 04:27 [place] % (Auto) 4.5 % (0.0-13.0) 11/18/18 04:27 Eos % (Auto) 0.5 % (0.9-2.9) L 11/18/18 04:27 Baso % (Auto) 0.1 % (0.2-1.0) L 11/18/18 04:27 Neut # (Auto) 11.0 x10^3/uL (2.2-4.8) H 11/18/18 04:27 Lymph # (Auto) 0.7 X10^3/uL (1.3-2.9) L 11/18/18 04:27 [place] # (Auto) 0.5 x10^3/uL (0.3-0.8) 11/18/18 04:27 Eos # (Auto) 0.1 x10^3/uL (0.0-0.2) 11/18/18 04:27 Baso # (Auto) 0.0 X10^3/uL (0.0-0.1) 11/18/18 04:27 Absolute Nucleated RBC 0.3 /100WBC 11/18/18 04:27 Total Counted 100 11/18/18 04:27 Neutrophils % (Manual) 87 % (39-76) H 11/18/18 04:27 Band Neutrophils % 1 % (0-10) 11/18/18 04:27 Lymphocytes % (Manual) 7 % (13-43) L 11/18/18 04:27 Monocytes % (Manual) 4 % (4-9) 11/18/18 04:27 Eosinophils % (Manual) 1 % (0-6) 11/18/18 04:27 Plt Morphology Comment Normal (NORMAL) 11/18/18 04:27 RBC Morphology Normal (NORMAL) 11/18/18 04:27 ESR 48 MM/HOUR (0-20) H 11/18/18 04:27 INR Target Range - 11/14/18 05:24 INR 1.08 (0.8-1.3) 11/14/18 05:24 Sample Site Rrad 11/17/18 05:48 ABG pH 7.560 (7.35-7.45) H* 11/17/18 05:48 ABG pCO2 36.0 mmHg (35.0-45.0) 11/17/18 05:48 ABG pO2 92.0 mmHg (80.0-100.0) 11/17/18 05:48 ABG HCO3 32.2 mmol/L (22-26) H* 11/17/18 05:48 ABG O2 Saturation 98.0 % (90-100) 11/17/18 05:48 ABG Base Excess 9.5 mmol/L (-2.0-2.0) H 11/17/18 05:48 Lan Test Pos 11/17/18 05:48 A-a Gradient 291.0 mmHg 11/17/18 05:48 FiO2 60.0 11/17/18 05:48 Blood Gas Comments Erin abg well-mtf 11/17/18 05:48 Sodium 144 mmol/L (136-145) 11/18/18 04:27 Corrected Sodium TNP 11/18/18 04:27 Potassium 2.6 mmol/L (3.5-5.1) L* 11/18/18 04:27 Chloride 99 mmol/L (98-107) 11/18/18 04:27 Carbon Dioxide 33.4 mmol/L (21-32) H 11/18/18 04:27 BUN 39 mg/dL (7-18) H 11/18/18 04:27 Creatinine 2.32 mg/dL (0.55-1.02) H 11/18/18 04:27 Est GFR (MDRD) Af Amer 26 (>60) L 11/18/18 04:27 Est GFR (MDRD) Non-Af 22 (>60) L 11/18/18 04:27 Glucose 70 mg/dL (65-99) 11/18/18 04:27 POC Glucose (mg/dL) 56 mg/dL (65-99) L 11/17/18 21:19 Lactic Acid 1.0 mmol/L (0.4-2.0) 11/12/18 17:48 Calcium 8.9 mg/dL (8.5-10.1) 11/18/18 04:27 Corrected Calcium 9.8 mg/dL (8.5-10.1) 11/18/18 04:27 Magnesium 1.5 mg/dL (1.7-2.9) L 11/18/18 04:27 Total Bilirubin 1.10 mg/dL (0.2-1.0) H 11/18/18 04:27 AST 44 Units/L (15-37) H 11/18/18 04:27 ALT 30 Units/L (12-78) 11/18/18 04:27 Alkaline Phosphatase 44 Units/L (46-116) L 11/18/18 04:27 Creatine Kinase 602 Units/L (26-192) H 11/17/18 10:22 CK-MB (CK-2) 3.4 ng/mL (0-4.0) 11/17/18 10:22 CK/CKMB % Calc 0.6 % (<4) 11/17/18 10:22 Troponin I 0.49 ng/mL (0-1.5) 11/17/18 10:22 C-Reactive Protein 196.30 mg/L (0-3.0) H 11/18/18 04:27 Total Protein 6.1 g/dL (6.4-8.2) L 11/18/18 04:27 Albumin 2.9 g/dL (3.4-5.0) L 11/18/18 04:27 Globulin 3.2 g/dL (2.5-4.5) 11/18/18 04:27 Albumin/Globulin Ratio 0.9 Ratio (1.1-2.1) L 11/18/18 04:27 Specimen Type Catherized urine 11/12/18 20:45 Urine Color Yellow (YELLOW) 11/12/18 20:45 Urine Appearance Hazy (CLEAR) 11/12/18 20:45 Urine pH 5.0 (5.0 - 8.0) 11/12/18 20:45 Ur Specific [place] 1.020 (1.000-1.030) 11/12/18 20:45 Urine Protein 2+ (NEGATIVE) 11/12/18 20:45 Urine Glucose (UA) Negative (NEGATIVE) 11/12/18 20:45 Urine Ketones Negative (NEGATIVE) 11/12/18 20:45 Urine Occult Blood 4+ (NEGATIVE) 11/12/18 20:45 Urine Nitrite Negative (NEGATIVE) 11/12/18 20:45 Urine Bilirubin 2+ (NEGATIVE) 11/12/18 20:45 Urine Urobilinogen Normal (NORMAL) 11/12/18 20:45 Ur Leukocyte Esterase 1+ (NEGATIVE) 11/12/18 20:45 Urine RBC 0-2 /HPF (NONE SEEN) 11/12/18 20:45 Urine WBC 0-2 /HPF (NONE SEEN) 11/12/18 20:45 Ur Squamous Epith Cells Rare /HPF (NEGATIVE) 11/12/18 20:45 Amorphous Sediment 3+ /HPF (NEGATIVE) 11/12/18 20:45 Urine Bacteria Negative /HPF (NEGATIVE) 11/12/18 20:45 Hyaline Casts Rare /LPF (NEGATIVE) 11/12/18 20:45 Fine Granular Casts Rare /LPF (NEGATIVE) 11/12/18 20:45 Ur Culture Indicated? No/not indicated 11/12/18 20:45 Random Vancomycin 15.8 ug/mL 11/16/18 14:10 Tissue Pathology To follow 11/14/18 10:36 - Assessment and Plan 1: post op amputation 2ed toe Lt foot.( staph aureus infection ). cellulitis Lt foot.( improving ). severe Rheumatoid arthritis . CKD . same PO care with IV ATB and local care .. change dressing daily . - Problem Patient Problems: Patient Problems Acute hypotension (Acute) I95.9 Acute renal failure (Acute) N17.9 Cellulitis of foot, left (Acute) L03.116 Noninfected skin tear of right leg (Acute) S81.811A Noninfected skin tear of left leg (Acute) S81.812A Status post amputation of toe of left foot (Acute) Z89.422
[2018-11-18] MEDS: VANCOMYCIN HCL 1 GM VIAL 1 G in D5W 250 ML IV 250 ML IV SCH (20:11)
[2018-11-18 22:22] LABS: ABG BASE EXCESS 16.6 mmol/L (-2.0-2.0)
[2018-11-18 22:24] LABS: ABG HCO3 41.1 mmol/L (22-26)
[2018-11-19] MEDS: DILAUDID INJ IVP PRN ×4 (03:03→20:22)
[2018-11-19] MEDS: LOPRESSOR INJ 5 MG AMP IVP SCH ×4 (04:23→20:20)
[2018-11-19] MEDS: VASOTEC INJ 2.5 MG VIAL IVP SCH ×4 (04:24→20:21)
[2018-11-19 05:27] LABS: BASOPHILS % (AUTO) 0.1 % (0.2-1.0); EOSINOPHILS # (AUTO) 0.1 x10^3/uL (0.0-0.2); EOSINOPHILS % (AUTO) 0.9 % (0.9-2.9); HEMATOCRIT 30.2 % (36.0-47.0); HEMOGLOBIN 10.3 g/dL (12.0-16.0); LYMPHOCYTES # (AUTO) 0.8 X10^3/uL (1.3-2.9); MEAN CORPUSCULAR HEMOGLOBIN 29.5 pg (27.0-34.0); MEAN CORPUSCULAR HGB CONC 34.2 g/dL (33.0-35.0); MEAN CORPUSCULAR VOLUME 86.4 fL (80.0-100.0); MEAN PLATELET VOLUME 8.9 fL (7.4-11.0); MONOCYTES # (AUTO) 0.7 x10^3/uL (0.3-0.8); MONOCYTES % (AUTO) 5.1 % (0.0-13.0); NEUTROPHILS # (AUTO) 11.3 x10^3/uL (2.2-4.8); NEUTROPHILS % (AUTO) 87.9 % (42.0-75.0); PLATELET COUNT 90 X10^3/uL (150.0-450.0); RED BLOOD COUNT 3.49 X10^6/uL (3.5-5.4); RED CELL DISTRIBUTION WIDTH 15.2 % (11.6-16.5); WHITE BLOOD COUNT 12.8 X10^3/uL (3.6-10.0)
[2018-11-19 05:41] LABS: ALANINE AMINOTRANSFERASE 27 Units/L (12-78); ALBUMIN 3.1 g/dL (3.4-5.0); ALKALINE PHOSPHATASE 37 Units/L (46-116); ASPARTATE AMINO TRANSFERASE 34 Units/L (15-37); BLOOD UREA NITROGEN 43 mg/dL (7-18); CALCIUM 8.7 mg/dL (8.5-10.1); CHLORIDE 98 mmol/L (98-107); COR CA(FOR HYPOALB) 9.4 mg/dL (8.5-10.1); SODIUM 143 mmol/L (136-145); TOTAL PROTEIN 6.2 g/dL (6.4-8.2); eGFR NON BLACK RACES 18 (>60)
--- NOTE | 2018-11-19 05:54 | RAD ---
Examination: Portable AP chest History: SOB Comparison 11/18/2018 Findings: The heart size is stable and within normal limits. There is improved aeration of the lungs with essentially complete clearing of the right lung. There is residual pulmonary density, likely residual edema, in the left lower lobe. Impression: Continued improvement with residual findings at the left base. Continued follow-up suggested to establish stability. Reported By:
[2018-11-19] MEDS: MAGNESIUM SULFATE 1 GRAM/100 mL PREMIX 1 GM/100 ML BAG IV PRN ×4 (06:02→14:30)
[2018-11-19] MEDS: NICOTINE PATCH TD SCH (08:28)
[2018-11-19] MEDS: ALBUMIN HUMAN 25%- 100 ML 100 ML IV SCH (08:29)
[2018-11-19] MEDS: PEPCID 20 MG IV PREMIX* 20 MG/50 ML BAG IV SCH ×2 (08:30→20:20)
[2018-11-19] MEDS: SYNTHROID INJ 100 mcg VIAL IVP SCH (08:35)
[2018-11-19] MEDS: PROTONIX INJ 40 MG VIAL IVP SCH (08:40)
[2018-11-19] MEDS: LASIX IVP SCH ×2 (08:52→20:21)
[2018-11-19] MEDS: ATIVAN INJ 2 MG VIAL IVP PRN (12:30)
[2018-11-19] MEDS: D5W 1000 ML IV 1,000 ML with POTASSIUM CHLORIDE INJ 40 MEQ VIAL 40 MEQ IV SCH ×2 (15:21)
[2018-11-19] MEDS: HALDOL INJ IVP PRN (18:07)
--- NOTE | 2018-11-19 21:36 | PCM.PROG ---
Progress Note - Progress Note for Day of Date of Exam: 11/17/18 - Subjective Subjective: WAS ADMITTED FOR ACUTE HYPOTENSION, ACUTE RENAL FAILURE, AND CELLULITIS OF THE LEFT FOOT. 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 FAMILY REPORTS THAT SHE BECAME SHORT OF BREATH AND OXYGEN SATURATIONS DROPPED TO THE 70S YESTERDAY. LASIX WAS ADMINISTERED AND BIPAP WAS PLACED ON PATIENT. UPON MORNING ROUNDS, SHE REMAINS ON THE BIPAP. BILATERAL LUNG SOUNDS ARE DIMINISHED. CELLULITIS TO FOOT IS IMPROVING AND IS ONLY NOTED WITH MILD ERYTHEMA TODAY. HER VITALS THIS MORNING ARE: 98.9-114-20-96%-196/93. LABS WERE OBTAINED. ABNORMAL LAB VALUES INCLUDE THE FOLLOWING: WBC 16.2, HGB 10.3, HCT 30.1, BUN 43, CREATININE 2.29, AST 53, ALT 45, CRP 130.80, TOTAL PROTEIN 5.9, ALBUMIN 2.8, CREATINE KINASE 602. BLOOD CULTURES ARE PENDING. WOUND CULTURE IS POSITIVE FOR GROWTH OF STAPHYLOCOCCUS AUREUS. SHE IS CURRENTLY RECEIVING IV FLUIDS, PEPECID IV, PROTINIX IV, VANCOMYCIN 1G IV DAILY, ALBUMIN 25% IV DAILY, AND HOME MEDICATIONS WERE RESUMED. WE WILL OBTAIN AN ECHO AND START LASIX 40MG IV BID. OTHERWISE, WE WILL CONTINUE WITH CURRENT PLAN OF CARE AND WOUND CARE TODAY. WE WILL FOLLOW UP WITH AM LABS AND CONTINUE TO MONITOR. - Past Medical Family Social History Past Med/Fam/Surg Hx: No changes since H&P Allergies: Allergies Penicillins Adverse Reaction (Verified 11/12/18 17:29) - Review of Systems ROS: No change since H&P - Vital Signs and I&O's Vital Signs: Temperature 99.2 F Pulse Rate [Left Brachial] 125 Pulse Rate 89 Respiratory Rate 24 Blood Pressure [Right Arm] 150/81 Blood Pressure [Left Arm] 111/54 Blood Pressure 150/81 O2 Sat by Pulse Oximetry 100 Intake and Output: Intake & Output 11/17/18 11/18/18 11/19/18 11/20/18 11:59 11:59 11:59 11:59 Intake Total 220 / 220 450 / 450 590 / 590 580 / 580 Output Total 1650 / 1650 3500 / 3500 1450 / 1450 200 / 200 Balance -1430 / -1430 -3050 / -3050 -860 / -860 380 / 380 - Physical Exam Oriented: Other (confused and agitated but alert and answer questions .) Eyes: Normal Ear: Normal Nose: Normal Throat: Normal Respiratory: Generalized, Diminished, Rhonchi Cardiovascular: Normal : Normal Auscultation: Bowel Sounds: Normal Palpation: Normal Tenderness: Normal Skin: Wound (open wound Lt 2ed toe amputation site . no necrosis or active infecion .) Musculoskeletal: Left, Foot, Tender (open wound ,s/p amputation 2ed toe Lt foot with improving cellulitis .) Psychiatric: Normal Mood Description: Calm Affect: Normal Speech Pattern: Unclear - Laboratory and Diagnostics Result Diagrams: 11/19/18 04:25 11/19/18 04:25 Labs: 11/12/18 18:20 Blood Blood Culture - Final 11/12/18 17:48 Blood Blood Culture - Final 11/12/18 17:30 Foot - Left Gram Stain - Final 11/12/18 17:30 Foot - Left Wound Culture - Final Staphylococcus Aureus Laboratory WBC 12.8 X10^3/uL (3.6-10.0) H 11/19/18 04:25 RBC 3.49 X10^6/uL (3.5-5.4) L 11/19/18 04:25 Hgb 10.3 g/dL (12.0-16.0) L 11/19/18 04:25 Hct 30.2 % (36.0-47.0) L 11/19/18 04:25 MCV 86.4 fL (80.0-100.0) 11/19/18 04:25 MCH 29.5 pg (27.0-34.0) 11/19/18 04:25 MCHC 34.2 g/dL (33.0-35.0) 11/19/18 04:25 RDW 15.2 % (11.6-16.5) 11/19/18 04:25 Plt Count 90 X10^3/uL (150.0-450.0) L 11/19/18 04:25 Plt Count Comment Decreased (ADEQUATE) A 11/18/18 04:27 MPV 8.9 fL (7.4-11.0) 11/19/18 04:25 Neut % (Auto) 87.9 % (42.0-75.0) H 11/19/18 04:25 Lymph % (Auto) 6.0 % (21.0-51.0) L 11/19/18 04:25 [place] % (Auto) 5.1 % (0.0-13.0) 11/19/18 04:25 Eos % (Auto) 0.9 % (0.9-2.9) 11/19/18 04:25 Baso % (Auto) 0.1 % (0.2-1.0) L 11/19/18 04:25 Neut # (Auto) 11.3 x10^3/uL (2.2-4.8) H 11/19/18 04:25 Lymph # (Auto) 0.8 X10^3/uL (1.3-2.9) L 11/19/18 04:25 [place] # (Auto) 0.7 x10^3/uL (0.3-0.8) 11/19/18 04:25 Eos # (Auto) 0.1 x10^3/uL (0.0-0.2) 11/19/18 04:25 Baso # (Auto) 0.0 X10^3/uL (0.0-0.1) 11/19/18 04:25 Absolute Nucleated RBC 0.1 /100WBC 11/19/18 04:25 Total Counted 100 11/18/18 04:27 Neutrophils % (Manual) 87 % (39-76) H 11/18/18 04:27 Band Neutrophils % 1 % (0-10) 11/18/18 04:27 Lymphocytes % (Manual) 7 % (13-43) L 11/18/18 04:27 Monocytes % (Manual) 4 % (4-9) 11/18/18 04:27 Eosinophils % (Manual) 1 % (0-6) 11/18/18 04:27 Plt Morphology Comment Normal (NORMAL) 11/18/18 04:27 RBC Morphology Normal (NORMAL) 11/18/18 04:27 ESR 48 MM/HOUR (0-20) H 11/18/18 04:27 INR Target Range - 11/14/18 05:24 INR 1.08 (0.8-1.3) 11/14/18 05:24 Sample Site Rbra 11/18/18 22:15 ABG pH 7.550 (7.35-7.45) H 11/18/18 22:15 ABG pCO2 47.0 mmHg (35.0-45.0) H 11/18/18 22:15 ABG pO2 144.0 mmHg (80.0-100.0) H 11/18/18 22:15 ABG HCO3 41.1 mmol/L (22-26) H* 11/18/18 22:15 ABG O2 Saturation 99.0 % (90-100) 11/18/18 22:15 ABG Base Excess 16.6 mmol/L (-2.0-2.0) H 11/18/18 22:15 Aln Test N/a 11/18/18 22:15 A-a Gradient 82.0 mmHg 11/18/18 22:15 FiO2 40.0 11/18/18 22:15 Blood Gas Comments Pt toll well eb 11/18/18 22:15 Sodium 143 mmol/L (136-145) 11/19/18 04:25 Corrected Sodium TNP 11/19/18 04:25 Potassium 2.6 mmol/L (3.5-5.1) L* 11/19/18 04:25 Chloride 98 mmol/L (98-107) 11/19/18 04:25 Carbon Dioxide 36.0 mmol/L (21-32) H 11/19/18 04:25 BUN 43 mg/dL (7-18) H 11/19/18 04:25 Creatinine 2.70 mg/dL (0.55-1.02) H 11/19/18 04:25 Est GFR (MDRD) Af Amer 22 (>60) L 11/19/18 04:25 Est GFR (MDRD) Non-Af 18 (>60) L 11/19/18 04:25 Glucose 94 mg/dL (65-99) 11/19/18 04:25 POC Glucose (mg/dL) 56 mg/dL (65-99) L 11/17/18 21:19 Lactic Acid 1.0 mmol/L (0.4-2.0) 11/12/18 17:48 Calcium 8.7 mg/dL (8.5-10.1) 11/19/18 04:25 Corrected Calcium 9.4 mg/dL (8.5-10.1) 11/19/18 04:25 Magnesium 1.4 mg/dL (1.7-2.9) L 11/19/18 04:25 Total Bilirubin 1.00 mg/dL (0.2-1.0) 11/19/18 04:25 AST 34 Units/L (15-37) 11/19/18 04:25 ALT 27 Units/L (12-78) 11/19/18 04:25 Alkaline Phosphatase 37 Units/L (46-116) L 11/19/18 04:25 Creatine Kinase 602 Units/L (26-192) H 11/17/18 10:22 CK-MB (CK-2) 3.4 ng/mL (0-4.0) 11/17/18 10:22 CK/CKMB % Calc 0.6 % (<4) 11/17/18 10:22 Troponin I 0.49 ng/mL (0-1.5) 11/17/18 10:22 C-Reactive Protein 196.30 mg/L (0-3.0) H 11/18/18 04:27 B-Natriuretic Peptide 1030 pg/mL (0-79) H* 11/18/18 20:50 Total Protein 6.2 g/dL (6.4-8.2) L 11/19/18 04:25 Albumin 3.1 g/dL (3.4-5.0) L 11/19/18 04:25 Globulin 3.1 g/dL (2.5-4.5) 11/19/18 04:25 Albumin/Globulin Ratio 1.0 Ratio (1.1-2.1) L 11/19/18 04:25 Specimen Type Catherized urine 11/12/18 20:45 Urine Color Yellow (YELLOW) 11/12/18 20:45 Urine Appearance Hazy (CLEAR) 11/12/18 20:45 Urine pH 5.0 (5.0 - 8.0) 11/12/18 20:45 Ur Specific [place] 1.020 (1.000-1.030) 11/12/18 20:45 Urine Protein 2+ (NEGATIVE) 11/12/18 20:45 Urine Glucose (UA) Negative (NEGATIVE) 11/12/18 20:45 Urine Ketones Negative (NEGATIVE) 11/12/18 20:45 Urine Occult Blood 4+ (NEGATIVE) 11/12/18 20:45 Urine Nitrite Negative (NEGATIVE) 11/12/18 20:45 Urine Bilirubin 2+ (NEGATIVE) 11/12/18 20:45 Urine Urobilinogen Normal (NORMAL) 11/12/18 20:45 Ur Leukocyte Esterase 1+ (NEGATIVE) 11/12/18 20:45 Urine RBC 0-2 /HPF (NONE SEEN) 11/12/18 20:45 Urine WBC 0-2 /HPF (NONE SEEN) 11/12/18 20:45 Ur Squamous Epith Cells Rare /HPF (NEGATIVE) 11/12/18 20:45 Amorphous Sediment 3+ /HPF (NEGATIVE) 11/12/18 20:45 Urine Bacteria Negative /HPF (NEGATIVE) 11/12/18 20:45 Hyaline Casts Rare /LPF (NEGATIVE) 11/12/18 20:45 Fine Granular Casts Rare /LPF (NEGATIVE) 11/12/18 20:45 Ur Culture Indicated? No/not indicated 11/12/18 20:45 Random Vancomycin 15.8 ug/mL 11/16/18 14:10 Tissue Pathology To follow 11/14/18 10:36 - Plan (1) Cellulitis of foot, left Status: Acute Plan: IV FLUIDS, WOUND CULTURES, IV ANTIBIOTICS, CONTINUE TO MONITOR (2) Acute hypotension Status: Acute (3) Acute renal failure Status: Acute Qualifiers: Acute renal failure type: with acute renal cortical necrosis Qualified Cod e(s): N17.1 - Acute kidney failure with acute cortical necrosis (4) Status post amputation of toe of left foot Status: Acute (5) Fluid overload, unspecified Status: Acute Qualifiers: Hypervolemia type: unspecified Qualified Code(s): E87.70 - Fluid overload, unspecified Plan: OBTAIN ECHO, LASIX 40MG IV BID, BIPAP
[2018-11-19 21:43] LABS: CREATININE 2.92 mg/dL (0.55-1.02)
[2018-11-19 21:47] LABS: VANCOMYCIN,TROUGH 26.8 ug/mL (15-20)
[2018-11-20] MEDS: DILAUDID INJ IVP PRN ×5 (01:59→15:57)
[2018-11-20] MEDS ORDERED: PHARMACY COMMENT IV NR (05:00)
[2018-11-20] MEDS: LOPRESSOR INJ 5 MG AMP IVP SCH ×2 (05:06→10:34)
[2018-11-20] MEDS: VASOTEC INJ 2.5 MG VIAL IVP SCH ×2 (05:07→10:30)
[2018-11-20 05:17] LABS: BASOPHILS % (AUTO) 0.1 % (0.2-1.0); EOSINOPHILS # (AUTO) 0.2 x10^3/uL (0.0-0.2); EOSINOPHILS % (AUTO) 1.1 % (0.9-2.9); HEMATOCRIT 31.5 % (36.0-47.0); HEMOGLOBIN 10.8 g/dL (12.0-16.0); LYMPHOCYTES # (AUTO) 1.6 X10^3/uL (1.3-2.9); MEAN CORPUSCULAR HEMOGLOBIN 29.6 pg (27.0-34.0); MEAN CORPUSCULAR HGB CONC 34.5 g/dL (33.0-35.0); MEAN CORPUSCULAR VOLUME 85.8 fL (80.0-100.0); MONOCYTES # (AUTO) 0.9 x10^3/uL (0.3-0.8); MONOCYTES % (AUTO) 6.6 % (0.0-13.0); NEUTROPHILS # (AUTO) 11.6 x10^3/uL (2.2-4.8); NEUTROPHILS % (AUTO) 81.2 % (42.0-75.0); PLATELET COUNT 89 X10^3/uL (150.0-450.0); RED BLOOD COUNT 3.67 X10^6/uL (3.5-5.4); RED CELL DISTRIBUTION WIDTH 15.5 % (11.6-16.5); WHITE BLOOD COUNT 14.3 X10^3/uL (3.6-10.0)
[2018-11-20 05:26] LABS: ALANINE AMINOTRANSFERASE 29 Units/L (12-78); ALBUMIN 3.8 g/dL (3.4-5.0); ALKALINE PHOSPHATASE 40 Units/L (46-116); ASPARTATE AMINO TRANSFERASE 36 Units/L (15-37); BLOOD UREA NITROGEN 46 mg/dL (7-18); CALCIUM 9.1 mg/dL (8.5-10.1); CARBON DIOXIDE 35.3 mmol/L (21-32); CHLORIDE 98 mmol/L (98-107); CREATININE 3.06 mg/dL (0.55-1.02); SODIUM 142 mmol/L (136-145); eGFR NON BLACK RACES 16 (>60)
[2018-11-20 05:51] LABS: BAND NEUTROPHILS % 4 % (0-10); PLATELET MORPHOLOGY COMMENT NORMAL (NORMAL)
--- NOTE | 2018-11-20 06:32 | RAD ---
Examination: Portable AP chest History: SOB Comparison 11/18/2018 Findings: The heart size is stable and within normal limits. Interstitium is slightly more accentuated in the interim. There is residual focus of increased left lower lobe retrocardiac density, which may represent pneumonia, atelectasis or combination of the above with trace effusion also suggested. Impression: Residual left lower lobe retrocardiac opacity representing possibility of pneumonia, atelectasis or combination of the above, with associated small left-sided pleural effusion Accentuation of the interstitium more pronounced in the interim with a few Anthony B-lines indicating mild congestion and interstitial edema. Reported By:
[2018-11-20] MEDS ORDERED: DUONEB 0.5 MG/3 MG NEB SCH (09:00)
[2018-11-20] MEDS: LASIX IVP SCH (09:25)
[2018-11-20] MEDS: ALBUMIN HUMAN 25%- 100 ML 100 ML IV SCH (10:30)
[2018-11-20] MEDS: PEPCID 20 MG IV PREMIX* 20 MG/50 ML BAG IV SCH (10:31)
[2018-11-20] MEDS: SYNTHROID INJ 100 mcg VIAL IVP SCH (10:31)
[2018-11-20] MEDS: PROTONIX INJ 40 MG VIAL IVP SCH (10:31)
[2018-11-20] MEDS: NICOTINE PATCH TD SCH (10:32)
[2018-11-20] MEDS ORDERED: VERSED 100 MG in NS 100 ML IV 80 ML IV PRN (12:31)
[2018-11-20] MEDS ORDERED: DILAUDID INJ IVP PRN (15:43)
[2018-11-20 16:19] VITALS: BP 150/85
[2018-11-20] MEDS ORDERED: VERSED ONE (18:00)
[2018-11-20] MEDS ORDERED: NS 100 ML IV ONE (18:00)
[2018-11-21] MEDS ORDERED: DILAUDID INJ ONE ×3 (09:00)
[2018-11-21] MEDS ORDERED: VERSED ONE (09:00)
[2018-11-21] MEDS ORDERED: NS 100 ML IV ONE (09:00)
[2018-11-22] MEDS ORDERED: DURAGESIC 100 mcg/HR PATCH TD ONE (12:00)
[2018-11-22] MEDS ORDERED: VERSED IV ONE (20:25)
[2018-11-22] MEDS ORDERED: DILAUDID PCA 60 MG IVP ONE (20:25)
[2018-11-22] MEDS ORDERED: NS 100 ML IV IV ONE (21:47)
[2018-11-23] MEDS ORDERED: D5W ONE (08:18)
[2018-11-23] MEDS ORDERED: POTASSIUM CHLORIDE INJ 40 MEQ VIAL ONE (08:18)
== END 2018-11-23 08:52 | disposition expired | DRG 603 ==
LOC: ER 17:17 → MED/SURG 19:58
PROVIDERS: ADMIT Internal Medicine; ATTEND Internal Medicine
DX: R06.03 Acute respiratory distress; R94.31 Abnormal electrocardiogram [ECG] [EKG]; S81.811A Laceration without foreign body, right lower leg, initial encounter; X58.XXXA Exposure to other specified factors, initial encounter; M79.10 Myalgia, unspecified site; R26.89 Other abnormalities of gait and mobility; I96 Gangrene, not elsewhere classified; E86.0 Dehydration; I95.89 Other hypotension; I50.1 Left ventricular failure, unspecified; E87.70 Fluid overload, unspecified; N17.8 Other acute kidney failure; M06.80 Other specified rheumatoid arthritis, unspecified site; R53.1 Weakness; S81.812A Laceration without foreign body, left lower leg, initial encounter; B95.61 Methicillin susceptible Staphylococcus aureus infection as the cause of diseases classified elsewhere; L03.116 Cellulitis of left lower limb
CPT/HCPCS: 36415; 36600; 51702; 71010; 71045; 73630; 80053; 80202; 81001; 82550; 82553; 82565; 82803; 83605; 83735; 83880; 84484; 85025; 85610; 85652; 86140; 87040; 87070; 87075; 87077; 87186; 87205; 93005; 93306; 94660; 94760; 96365; 96367; 97167; 99100; 99284; A4222; A4618; A7030; C9113; J3490; P9047; Q0177; S0028; J0690; J1170; J1630; J1940; J1956; J2060; J2250; J2270; J2704; J2920; J3010; J3370; J3475; J3480; J7030; J7050; J7060